=== PATIENT | female | born 1980 | race Caucasian/White ===

== ENCOUNTER 2019-08-20 09:32 | Emergency (ER) | payer OTHER, SELFPAY ==
[2019-08-20 09:41] VITALS: BP 127/66; PULSE 88; RESP 20; TEMP 37.3; O2SAT 100
--- NOTE | 2019-08-20 10:47 | ED.URI ---
HPI - URI/Sore Throat General Chief Complaint: Upper Respiratory Infection Stated Complaint: cough/fever/headache Time Seen by Provider: 08/20/19 10:48 Source: patient and family History of Present Illness HPI Narrative: Patient presents with 10-day history of cough sinus congestion and bilateral ear pressure. Patient is taking Zyrtec and Sudafed [id number] for her symptoms. Patient denies any shortness of breath no chest pain. Patient states is normally healthy individual. MD elicited complaint: cough and nasal congestion Related Data Home Medications Medication Instructions Recorded Confirmed venlafaxine 75 mg PO DAILY 08/20/19 08/20/19 Allergies Allergy/AdvReac Type Severity Reaction Status Date / Time No Known Allergies Allergy NONE Uncoded 08/20/19 10:20 Review of Systems Review of Systems: Narrative: CONSTITUTIONAL: Denies chills, or sweats. Reports fever and generalized body aches EYES: Denies visual changes, redness, or discharge. ENT: Denies otalgia. Reports nasal congestion runny nose and sore throat CARDIOVASCULAR: Denies chest pain, palpitations, or edema. RESPIRATORY: Denies dyspnea. Reports occasional cough GASTROINTESTINAL: Denies abdominal pain, nausea, vomiting, or diarrhea. GENITOURINARY: Denies dysuria or hematuria. SKIN: Denies rash or itching. MUSCULOSKELETAL: Denies back pain, joint pain, or myalgia. Reports generalized body aches NEUROLOGIC: Denies headache, numbness, or weakness. PSYCHIATRIC: Denies anxiety or depression. PMFSH Comments At time of signature, agree with nursing past medical, surgical, social and family history. There is no relevant family history pertinent to the presenting complaint Exam Narrative: Exam Narrative: GENERAL: Well-appearing, well-nourished, and in no acute distress. HEAD: Normocephalic, atraumatic. EYES: PERRLA and EOMI. ENT: Nares clear, no rhinorrhea or epistaxis. Mucous membranes moist. Mild maxillary sinus tenderness moderate amount of postnasal drainage NECK: Supple. CHEST: Clear to auscultation. No respiratory distress. HEART: Regular rate and rhythm. No murmur heard. Normal peripheral pulses. ABDOMEN: Soft, nontender, nondistended, normal active bowel sounds. EXTREMITIES: Normal range of motion. No edema. SKIN: Warm, dry, no rash. NEURO: No focal deficits. Alert and oriented x3. Alvin Coma Scale Eye Opening: Spontaneous 4 Alvin Coma Scale Motor: Obeys Commands 6 Alvin Coma Scale Verbal: Oriented 5 Bowers Coma Scale Total 15 Course Vital Signs Vital signs: Vital Signs Temperature 37.3 C 08/20/19 09:41 Pulse Rate 88 08/20/19 09:41 Respiratory Rate 08/20/19 09:41 Blood Pressure 127/66 08/20/19 09:41 Pulse Oximetry 100 08/20/19 09:41 Temperature 37.3 C 08/20/19 09:41 Pulse Rate 88 08/20/19 09:41 Respiratory Rate 08/20/19 09:41 Blood Pressure 127/66 08/20/19 09:41 Pulse Oximetry 100 08/20/19 09:41 Addressed elevated BP today. Today's blood pressure higher than recommended range. Discussed importance of follow -up with PCP and possible intermediate accountant effects/cardiovascular events related to HTN. Currently patient denies headache, dizziness, vision changes, CP or shortness of breath. MDM - URI/Sore Throat Differential Diagnosis Differential diagnosis: Likely upper respiratory infection, otitis media, sinusitis, viral infection and bronchitis Critical Care Time Critical Care Time Critical Care Time: No Discharge Plan Discharge Clinical Impression: Sinusitis, Upper respiratory infection, Bronchitis Patient Disposition: Home, Self-Care Condition: Stable Instructions: Antibiotic Form Additional Instructions: INUSITIS, Abx Tx, Drink plenty of water (with the goal to keep your urine clear to light yellow) and get plenty of rest (8-9 hours a night).You may try saline rinses (Delmont/Simply Saline/Neti Pot), Hola's Vaporub, or a humidifier/hot showers for your nose symptoms. You may
== END 2019-08-20 11:03 | disposition home or self-care (01) ==
PROVIDERS: Emergency Provider Nurse Practitioner Family
DX: J32.9 Chronic sinusitis, unspecified (principal); J06.9 Acute upper respiratory infection, unspecified; J40 Bronchitis, not specified as acute or chronic; F41.9 Anxiety disorder, unspecified
CPT/HCPCS: 99213; G0463

== ENCOUNTER 2019-09-03 08:00 | Emergency (ER) | payer OTHER, SELFPAY ==
[2019-09-03 08:08] VITALS: BP 140/74; PULSE 103; RESP 16; TEMP 37; O2SAT 100
--- NOTE | 2019-09-03 08:15 | ED.FEMALEGU ---
HPI - Female Genitourinary General Chief complaint: Urogenital-Female Stated complaint: bladder infection Time Seen by Provider: 09/03/19 08:15 Source: patient and RN notes reviewed History of Present Illness HPI Narrative: Patient is a 39-year-old female presents the urgent care with dysuria, frequency, urgency. Patient states that she was on amoxicillin on August 19 from our facility for URI/UTI and symptoms did resolve. However, patient states that symptoms returned 1 day ago and she is also having intermittent suprapubic pressure. Denies any nausea, vomiting, abdominal pain, fever. States that she did call her PCP but they are not currently seeing any patients. Patient has not taken anything for her symptoms. No other acute complaints. No acute distress noted. Patient read the plan of care. Related Data Home Medications Medication Instructions Recorded Confirmed venlafaxine 150 mg PO DAILY 09/03/19 09/03/19 Allergies Allergy/AdvReac Type Severity Reaction Status Date / Time No Known Allergies Allergy NONE Uncoded 09/03/19 08:21 Review of Systems Review of Systems: Narrative: CONSTITUTIONAL: Denies fever, chills, or sweats. EYES: Denies visual changes, redness, or discharge. ENT: Denies rhinorrhea, congestion, sore throat, or otalgia. CARDIOVASCULAR: Denies chest pain, palpitations, or edema. RESPIRATORY: Denies cough or dyspnea. GASTROINTESTINAL: Denies abdominal pain, nausea, vomiting, or diarrhea. GENITOURINARY: Reports of dysuria, frequency, urgency SKIN: Denies rash or itching. MUSCULOSKELETAL: Denies back pain, joint pain, or myalgia. NEUROLOGIC: Denies headache, numbness, or weakness. All other systems reviewed are negative, except as documented in HPI. PMFSH Comments At the time of my signature, I reviewed and agree with the nursing past medical, surgical, social, and family history. There is no relevant family history pertinent to the patient complaint. Exam Narrative: Exam Narrative: GENERAL: This is a well-nourished, well-developed patient, in no apparent distress. HEAD: normocephalic, atraumatic. EYES: PERRL. Sclera clear/white. Vision is grossly intact. EARS: External ears normal NOSE: External nose normal with no obvious nasal discharge THROAT: Mucous membranes moist NECK: Neck supple CARDIOVASCULAR: Regular rate and rhythm without murmurs, gallops, or rubs. RESPIRATORY: Clear to auscultation. Breath sounds equal bilaterally. No wheezes, rales, or rhonchi. GASTROINTESTINAL: Abdomen soft, non-tender, nondistended. SKIN: warm, intact with no suspicious lesions or rash, good texture and turgor. NEURO: awake, alert, and oriented to person, place and time. There were no obvious focal neurologic abnormalities. EXTREMITIES: No clubbing, cyanosis, or edema. BACK: Negative bilateral CVA tenderness Course Vital Signs Vital signs: Vital Signs Temperature 98.6 F 09/03/19 08:08 Pulse Rate 103 H 09/03/19 08:08 Respiratory Rate 16 09/03/19 08:08 Blood Pressure 140/74 09/03/19 08:08 Pulse Oximetry 100 09/03/19 08:08 Temperature 98.6 F 09/03/19 08:08 Pulse Rate 103 H 09/03/19 08:08 Respiratory Rate 16 09/03/19 08:08 Blood Pressure 140/74 09/03/19 08:08 Pulse Oximetry 100 09/03/19 08:08 Reviewed MDM - Female Genitourinary MDM Narrative Medical decision making narrative: Reviewed lab results with the patient. She is aware that urine analysis was negative for urinary tract infection. Advised the patient to continue avoiding sugary and caffeinated drinks. Increase water intake. If you develop any increase in symptoms, follow-up with your PCP. May need further follow-up with urologist in the future. Differential Diagnosis Differential diagnosis: Likely urinary tract infection, cervicitis, ovarian cyst, vaginitis, cystitis and dysmenorrhea Lab Data Attestation: I reviewed the patient's lab results. Labs: Urine Glucose Negative Reference Range
--- NOTE | 2019-09-03 08:28 | PC.NURSE ---
NO UC ORDERED PER GER[place]
== END 2019-09-03 08:35 | disposition home or self-care (01) ==
PROVIDERS: Emergency Provider Nurse Practitioner Family
DX: R39.15 Urgency of urination (principal); F41.9 Anxiety disorder, unspecified
CPT/HCPCS: 81003; 99212; G0463

== ENCOUNTER 2020-05-10 15:21 | Emergency (ER) | payer OTHER, SELFPAY ==
--- NOTE | 2020-05-10 15:26 | ED.GENADULT ---
HPI - General Adult General Chief complaint: Upper Respiratory Infection Stated complaint: nose headache throat Time Seen by Provider: 05/10/20 15:48 Source: patient Mode of arrival: ambulatory Limitations: no limitations History of Present Illness HPI narrative: 40-year-old female patient presents to the [facility] with complaints of cold symptoms for the past week and a half. Patient states she has had congestion, some sinus pressure, headache, denies any cough chest pain or shortness of breath. Denies any fevers, body aches or chills. Patient states she has tried [id number] Sudafed and Zyrtec and Flonase for her symptoms. Denies any abdominal pain, nausea, vomiting or diarrhea. Patient denies being Covid tested. Related Data Home Medications Medication Instructions Recorded Confirmed venlafaxine 150 mg PO DAILY 09/03/19 05/10/20 cetirizine [Zyrtec] 10 mg PO DAILY 05/10/20 05/10/20 ergocalciferol (vitamin D2) 1,250 mcg PO DAILY 05/10/20 05/10/20 fluticasone propionate [Flonase 1 spray INTRANASAL DAILY 05/10/20 05/10/20 Allergy Relief] Allergies Allergy/AdvReac Type Severity Reaction Status Date / Time No Known Allergies Allergy NONE Uncoded 09/03/19 08:21 Review of Systems Review of Systems: Narrative: CONSTITUTIONAL: Denies fever, chills, or sweats. EYES: Denies visual changes, redness, or discharge. ENT: Denies rhinorrhea, positive congestion, denies sore throat, or otalgia. CARDIOVASCULAR: Denies chest pain, palpitations, or edema. RESPIRATORY: Denies cough or dyspnea. GASTROINTESTINAL: Denies abdominal pain, nausea, vomiting, or diarrhea. GENITOURINARY: Denies dysuria or hematuria. SKIN: Denies rash or itching. MUSCULOSKELETAL: Denies back pain, joint pain, or myalgia. NEUROLOGIC: Positive headache, denies numbness, or weakness. PSYCHIATRIC: Denies anxiety or depression. [facility] Past Medical History Medical History (Updated 05/10/20 @ 15:55 by SHANANN Manning) Anxiety Depression Surgical History Surgical History (Updated 05/10/20 @ 15:27 by SHANNAN Manning) Hx of tubal ligation Social History Social History Gender identity (if verbalized by the patient): Female Comments At the time of my signature I agree with nursing past medical history, surgical, social, and family history. There is no relevant family history pertinent to the presenting complaint. Exam Narrative: Exam Narrative: GENERAL: Well-appearing, well-nourished, and in no acute distress. HEAD: Normocephalic, atraumatic. Tenderness noted to maxillary sinuses on palpation EYES: PERRLA and EOMI. ENT: Nares clear, no rhinorrhea or epistaxis. Mucous membranes moist. Bilateral TMs are clear with no erythema or foreign bodies in the canal. Posterior pharynx no erythema, tonsil management, exudates or lesions present. NECK: Supple. No lymphadenopathy CHEST: Clear to auscultation. No respiratory distress. HEART: Regular rate and rhythm. No murmur heard. Normal peripheral pulses. ABDOMEN: Soft, nontender, nondistended, normal active bowel sounds. EXTREMITIES: Normal range of motion. No edema. SKIN: Warm, dry, no rash. NEURO: No focal deficits. Alert and oriented x3. Course Vital Signs Vital signs: Vital Signs Temperature 36.9 C 05/10/20 15:27 Pulse Rate 83 05/10/20 15:27 Respiratory Rate 16 05/10/20 15:27 Blood Pressure 138/92 H 05/10/20 15:27 Pulse Oximetry 98 05/10/20 15:27 Temperature 36.9 C 05/10/20 15:27 Pulse Rate 83 05/10/20 15:27 Respiratory Rate 16 05/10/20 15:27 Blood Pressure 138/92 H 05/10/20 15:27 Pulse Oximetry 98 05/10/20 15:27 Vital signs reviewed The patient has been informed that they may have pre-hypertension or Hypertension based on a BP reading in the department. I recommend that the patient call the primary care provider listed on their discharge instructions or a physician of their choice this week to a
[2020-05-10 15:27] VITALS: BP 138/92; PULSE 83; RESP 16; TEMP 36.9; O2SAT 98
== END 2020-05-10 16:08 | disposition home or self-care (01) ==
PROVIDERS: Emergency Provider Nurse Practitioner Family; PCP Nurse Practitioner Family
DX: Z20.828 Contact with and (suspected) exposure to other viral communicable diseases (principal); J01.00 Acute maxillary sinusitis, unspecified; F41.9 Anxiety disorder, unspecified; F32.9 Major depressive disorder, single episode, unspecified
CPT/HCPCS: 99213; G0463

== ENCOUNTER 2020-08-20 08:32 | Emergency (ER) | payer OTHER, SELFPAY ==
[2020-08-20 08:38] VITALS: BP 133/69; PULSE 93; RESP 14; TEMP 36.8; O2SAT 98
--- NOTE | 2020-08-20 12:35 | ED.URI ---
HPI - URI/Sore Throat General Chief Complaint: Upper Respiratory Infection Stated Complaint: headache, stuffy fatigued Source: patient Mode of arrival: ambulatory Limitations: no limitations History of Present Illness HPI Narrative: Patient is a 40-year-old female who presents complaining of headache, congestion, runny nose, mildly sore throat and facial pain and pressure x2 to 3 weeks. She reports taking [id number] Sudafed, allergy medication daily without relief. She reports thick yellow nasal drainage over the past 2 days. She denies all other complaints at this time. She denies exposure to Covid. MD elicited complaint: rhinorrhea, nasal congestion and sinus pain Related Data Home Medications Medication Instructions Recorded Confirmed venlafaxine 150 mg PO DAILY 09/03/19 08/20/20 cetirizine [Zyrtec] 10 mg PO DAILY 08/20/20 08/20/20 Allergies Allergy/AdvReac Type Severity Reaction Status Date / Time No Known Allergies Allergy NONE Uncoded 08/20/20 08:51 Review of Systems Review of Systems: Narrative: CONSTITUTIONAL: Denies fever, chills, or sweats. EYES: Denies visual changes, redness, or discharge. ENT: Reports rhinorrhea, congestion, mild sore throat, and facial pressure CARDIOVASCULAR: Denies chest pain, palpitations, or edema. RESPIRATORY: Denies cough or dyspnea. GASTROINTESTINAL: Denies abdominal pain, nausea, vomiting, or diarrhea. GENITOURINARY: Denies dysuria or hematuria. SKIN: Denies rash or itching. MUSCULOSKELETAL: Denies back pain, joint pain, or myalgia. NEUROLOGIC: Reports headache, denies numbness, dizziness, or weakness. PSYCHIATRIC: Denies anxiety or depression. [facility] Past Medical History Medical History Anxiety Depression Surgical History Surgical History Hx of tubal ligation Social History Social History Smoking status: Never smoker Alcohol intake: never Substance use: never Living arrangements: with family Gender identity (if verbalized by the patient): Female Comments At the time of signature, I have reviewed and agree with nursing past medical, surgical, social, and family history unless otherwise noted. Please see nursing chart for further information. There is no relevant family history pertinent to the presenting complaint. Exam Narrative: Exam Narrative: GENERAL: Well-appearing, well-nourished, and in no acute distress. HEAD: Normocephalic, atraumatic. EYES: EOMI. No redness or drainage. Conjunctiva are normal. ENT: Mucous membranes pink and moist. Nares clear. No rhinorrhea. TMs normal bilaterally. Throat normal. Uvula midline. Frontal and maxillary sinus tenderness with palpation NECK: AROM. Supple. No lymphadenopathy. CHEST: No respiratory distress. HEART: Regular rate and rhythm. EXTREMITIES: Normal range of motion. SKIN: Warm, dry, no rash. NEURO: No focal deficits. Alert and oriented x3. Gait steady. PSYCH: Normal affect. No signs of depression or anxiety. Course Vital Signs Vital signs: Vital Signs Temperature 36.8 C 08/20/20 08:38 Pulse Rate 93 08/20/20 08:38 Respiratory Rate 14 08/20/20 08:38 Blood Pressure 133/69 08/20/20 08:38 Pulse Oximetry 98 08/20/20 08:38 Temperature 36.8 C 08/20/20 08:38 Pulse Rate 93 08/20/20 08:38 Respiratory Rate 14 08/20/20 08:38 Blood Pressure 133/69 08/20/20 08:38 Pulse Oximetry 98 08/20/20 08:38 Reviewed-patient is informed that they may have pre-hypertension or hypertension based on a blood pressure reading. I recommend the patient call the primary care provider listed on their discharge instructions or a physician of their choice this week to arrange follow-up for further evaluation of possible pre-hypertension or hypertension. MDM - URI/Sore Throat MDM Narrative Medical decision making narrat
== END 2020-08-20 09:15 | disposition home or self-care (01) ==
PROVIDERS: Emergency Provider Nurse Practitioner; PCP Nurse Practitioner Family
DX: J01.00 Acute maxillary sinusitis, unspecified (principal); Z20.822 Contact with and (suspected) exposure to COVID-19; F41.9 Anxiety disorder, unspecified; F32.9 Major depressive disorder, single episode, unspecified
CPT/HCPCS: 87426; 99213; C9803; G0463

== ENCOUNTER 2021-05-13 18:19 | Emergency (ER) | payer OTHER, SELFPAY ==
[2021-05-13 18:25] VITALS: BP 147/85; PULSE 102; RESP 16; TEMP 36.9; O2SAT 100
--- NOTE | 2021-05-13 18:53 | ED.URI ---
HPI - URI/Sore Throat General Chief Complaint: Upper Respiratory Infection Stated Complaint: cough headache runny nose Time Seen by Provider: 05/13/21 18:53 Source: patient, RN notes reviewed and old records reviewed Mode of arrival: ambulatory Limitations: no limitations History of Present Illness HPI Narrative: 41-year-old female who presents to [facility] with one week duration of nasal congestion, clear nasal drainage with 4 days of loose cough. Patient states that she had her COVID booster and her flu shot on Sunday. Patient states that her throat is sore and is painful to swallow. Patient reports that she has been taking Sudafed,Zyrtec and Advil. Patient states that she was with her brother and his family over the holiday weekend and she just talked with him and all of his family has COVID. Patient denies any fevers. MD elicited complaint: sore throat, rhinorrhea and nasal congestion Related Data Home Medications Medication Instructions Recorded Confirmed venlafaxine 150 mg PO DAILY 05/13/21 05/13/21 Allergies Allergy/AdvReac Type Severity Reaction Status Date / Time No Known Allergies Allergy Verified 05/13/21 18:38 Review of Systems Review of Systems: CONSTITUTIONAL: Denies fever, chills, or sweats. EYES: Denies visual changes, redness, or discharge. ENT: Positive for rhinorrhea, congestion, sore throat, no otalgia. CARDIOVASCULAR: Denies chest pain, palpitations, or edema. RESPIRATORY: Positive for productive cough, denies dyspnea. GASTROINTESTINAL: Denies abdominal pain, nausea, vomiting, or diarrhea. GENITOURINARY: Denies dysuria or hematuria. SKIN: Denies rash or itching. MUSCULOSKELETAL: Denies back pain, joint pain, or myalgia. NEUROLOGIC: Denies headache, numbness, or weakness. PSYCHIATRIC: Positive for history of anxiety or depression. All systems reviewed & are unremarkable except as noted in HPI and below PMFSH Past Medical History Medical History Anxiety Depression Surgical History Surgical History Hx of tubal ligation Family History Family History (Updated 05/15/21 @ 16:54 by Arlet Mathur NP) Other Family history non-contributory Social History Social History Smoking status: Never smoker Alcohol intake: never Substance use: never Gender identity (if verbalized by the patient): Female Comments At time of signature, agree with nursing past medical, surgical, social and family history. There is no relevant family history pertinent to the presenting complaint Exam Narrative: GENERAL: Well-appearing, well-nourished, and in no acute distress. HEAD: Normocephalic, atraumatic. EYES: PERRLA and EOMI. ENT: Nares red with clear rhinorrhea no epistaxis. Mucous membranes moist.TM's normal with good light reflex, throat red with tonsils enlarged, no lesions or exudates, some post nasal drainage noted. NECK: Supple.lymphadenopathy CHEST: Clear to auscultation. No respiratory distress.SAO2 100% on room air HEART: Regular rate and rhythm. No murmur heard. Normal peripheral pulses. ABDOMEN: Soft, nontender, nondistended, normal active bowel sounds. EXTREMITIES: Normal range of motion. No edema. SKIN: Warm, dry, no rash. NEURO: No focal deficits. Alert and oriented x3. Course Vital Signs Vital signs: Vital Signs Temperature 36.9 C 05/13/21 18:25 Pulse Rate 102 H 05/13/21 18:25 Respiratory Rate 16 05/13/21 18:25 Blood Pressure 147/85 H 05/13/21 18:25 Pulse Oximetry 100 05/13/21 18:25 Temperature 36.9 C 05/13/21 18:25 Pulse Rate 102 H 05/13/21 18:25 Respiratory Rate 16 05/13/21 18:25 Blood Pressure 147/85 H 05/13/21 18:25 Pulse Oximetry 100 05/13/21 18:25 MDM - URI/Sore Throat Differential Diagnosis Differential diagnosis: Likely upper respiratory infection, sinusitis, vi
[2021-05-16 19:11] LABS: SARS-CoV-2 RNA PCR Positive
== END 2021-05-13 19:15 | disposition home or self-care (01) ==
PROVIDERS: Emergency Provider Registered Nurse; PCP Nurse Practitioner Family
DX: U07.1 COVID-19 (principal)
CPT/HCPCS: 87426; 87880; 99213; C9803; G0463; U0003; U0005

== ENCOUNTER 2021-08-25 10:18 | Emergency (ER) | payer OTHER, SELFPAY ==
[2021-08-25 10:22] VITALS: BP 133/84; PULSE 100; RESP 20; TEMP 36.9; O2SAT 98
--- NOTE | 2021-08-25 10:22 | ED.URI ---
HPI - URI/Sore Throat General Chief Complaint: Upper Respiratory Infection Stated Complaint: headache drainage Time Seen by Provider: 08/25/21 10:22 Source: patient and RN notes reviewed History of Present Illness HPI Narrative: Patient is a 41-year-old female who presents the urgent care with complaints of sinus drainage/pressure and headache for the last 2 weeks. Patient states that she does have a history of chronic allergies and has been trying to treat the allergies with Zyrtec, Sudafed, Flonase and Vicks nasal spray. Patient states that today the headache is just much worse with the sinus pressure. Patient denies of any ill contacts. No other acute complaints. No acute distress noted. Patient aware of the plan of care. Some parts of this dictation were generated by voice recognition software and may contain typographical and/or grammatical inaccuracies. Related Data Home Medications Medication Instructions Recorded Confirmed venlafaxine 150 mg PO DAILY 05/13/21 08/25/21 Allergies Allergy/AdvReac Type Severity Reaction Status Date / Time No Known Allergies Allergy Verified 08/25/21 10:22 Review of Systems Review of Systems: CONSTITUTIONAL: Denies fever, chills, or sweats. EYES: Denies visual changes, redness, or discharge. ENT: Reports of sinus drainage, postnasal drainage, intermittent congestion, rhinorrhea CARDIOVASCULAR: Denies chest pain, palpitations, or edema. RESPIRATORY: Denies cough or dyspnea. GASTROINTESTINAL: Denies abdominal pain, nausea, vomiting, or diarrhea. GENITOURINARY: Denies dysuria or hematuria. SKIN: Denies rash or itching. MUSCULOSKELETAL: Denies back pain, joint pain, or myalgia. NEUROLOGIC: Reports of headaches All other systems reviewed are negative, except as documented in HPI. [facility] Past Medical History Medical History Anxiety Depression Surgical History Surgical History Hx of tubal ligation Family History Family History (Updated 05/15/21 @ 16:54 by Arlet Mathur NP) Other Family history non-contributory Social History Social History Smoking status: Never smoker Alcohol intake: never Substance use: never Gender identity (if verbalized by the patient): Female Comments At the time of my signature, I reviewed and agree with the nursing past medical, surgical, social, and family history. There is no relevant family history pertinent to the patient complaint. Exam Narrative: GENERAL: This is a well-nourished, well-developed patient, in no apparent distress. HEAD: normocephalic, atraumatic. Frontal sinus tenderness EYES: PERRL. Sclera clear/white. Vision is grossly intact. EARS: External ears normal, auditory canals clear and without drainage, TMs normal without perforation. Hearing grossly intact. NOSE: External nose normal with no obvious nasal discharge, bilateral erythemic nares with clear to yellow rhinorrhea. THROAT: Mucous membranes moist, posterior pharynx clear. Moderate postnasal drainage NECK: Neck supple, non-tender without lymphadenopathy, masses or thyromegaly. CARDIOVASCULAR: Regular rate and rhythm without murmurs, gallops, or rubs. RESPIRATORY: Clear to auscultation. Breath sounds equal bilaterally. No wheezes, rales, or rhonchi. SKIN: warm, intact with no suspicious lesions or rash, good texture and turgor. NEURO: awake, alert, and oriented to person, place and time. There were no obvious focal neurologic abnormalities. EXTREMITIES: No clubbing, cyanosis, or edema. Course Course Level of Care: Express Care Visit Vital Signs Vital signs: Vital Signs Temperature 98.4 F 08/25/21 10:22 Pulse Rate 100 08/25/21 10:22 Respiratory Rate 20 08/25/21 10:22 Blood Pressure 133/84 08/25/21 10:22 Pulse Oximetry 98 08/25/21 10:22 Temperature 98.4 F
== END 2021-08-25 10:43 | disposition home or self-care (01) ==
PROVIDERS: Emergency Provider Nurse Practitioner Family; PCP Nurse Practitioner Family
DX: J32.9 Chronic sinusitis, unspecified (principal); F41.9 Anxiety disorder, unspecified; F32.A Depression, unspecified
CPT/HCPCS: 99213; G0463

== ENCOUNTER 2022-04-28 08:54 | Emergency (ER) | payer OTHER, SELFPAY ==
[2022-04-28 08:59] VITALS: BP 134/73; PULSE 112; RESP 16; TEMP 37.4; O2SAT 100
--- NOTE | 2022-04-28 10:13 | ED.URI ---
HPI - URI/Sore Throat General Chief Complaint: Upper Respiratory Infection Stated Complaint: sore throat aches cough headache Time Seen by Provider: 04/28/22 10:06 Source: patient Mode of arrival: ambulatory Limitations: no limitations History of Present Illness HPI Narrative: Patient presents today complaining body aches, headache, fever, occasional sore throat, and congestion. Symptoms began yesterday. She currently rates her pain 12/18 and has been taking Sudafed and Advil with some relief. Was exposed to COVID-19 by her boss at work. She has been vaccinated against COVID-19. Related Data Home Medications Medication Instructions Recorded Confirmed venlafaxine 150 mg 150 mg PO DAILY 05/13/21 04/28/22 capsule,extended release 24 hr Allergies Allergy/AdvReac Type Severity Reaction Status Date / Time No Known Allergies Allergy Verified 04/28/22 09:50 Review of Systems Review of Systems: CONSTITUTIONAL: Denies chills, or sweats.+ body aches, fever EYES: Denies visual changes, redness, or discharge. ENT: Denies rhinorrhea, or otalgia.+ congestion, sore throat CARDIOVASCULAR: Denies chest pain, palpitations, or edema. RESPIRATORY: Denies cough or dyspnea. GASTROINTESTINAL: Denies abdominal pain, nausea, vomiting, or diarrhea. GENITOURINARY: Denies dysuria or hematuria. SKIN: Denies rash, itching, or wounds. MUSCULOSKELETAL: Denies back pain, joint pain, or myalgia. NEUROLOGIC: Denies numbness, tingling, or weakness.+ headache PSYCH: Denies depression or anxiety. [facility] Past Medical History Medical History Anxiety Depression Surgical History Surgical History Hx of tubal ligation Family History Family History Other Family history non-contributory Social History Social History Smoking status: Never smoker Alcohol intake: never Substance use: never Gender identity (if verbalized by the patient): Female Comments At time of signature, I have reviewed and agree with nursing past medical, surgical, social and family history unless otherwise noted. Please see nursing chart for further information. There is no relevant family history pertinent to the presenting complaint Exam Narrative: GENERAL: Mildly ill-appearing, well-nourished, and in no acute distress. HEAD: Normocephalic, atraumatic. EYES: EOMI. No redness or drainage. Conjunctivae normal. ENT: Mucous membranes pink and moist. Nares congested. No rhinorrhea. TMs normal bilaterally. Throat normal. Uvula midline. NECK: Normal AROM. Supple. No lymphadenopathy. CHEST: No respiratory distress. Clear to auscultation. HEART: Regular rhythm. + tachycardia. No murmur appreciated. Normal peripheral pulses. EXTREMITIES: Normal range of motion. No edema. SKIN: Warm, dry, no rash. Capillary refill normal. Normal skin turgor. NEURO: No focal deficits. Alert and oriented x3. Gait steady. PSYCH: Normal affect. No signs of depression or anxiety. Course Course Level of Care: Express Care Visit Vital Signs Vital signs: Vital Signs Temperature 99.3 F 04/28/22 08:59 Pulse Rate 112 H 04/28/22 08:59 Respiratory Rate 16 04/28/22 08:59 Blood Pressure 134/73 04/28/22 08:59 Pulse Oximetry 100 04/28/22 08:59 Oxygen Delivery Room Air 04/28/22 08:59 Temperature 99.3 F 04/28/22 08:59 Pulse Rate 112 H 04/28/22 08:59 Respiratory Rate 16 04/28/22 08:59 Blood Pressure 134/73 04/28/22 08:59 Pulse Oximetry 100 04/28/22 08:59 Oxygen Delivery Room Air 04/28/22 08:59 Reviewed. Pt has been instructed to follow up with her PCP regarding her elevated blood pressure today. MDM - URI/Sore Throat Differential Diagnosis Differential diagnosis: Likely upper respiratory infecti
== END 2022-04-28 10:20 | disposition home or self-care (01) ==
PROVIDERS: Emergency Provider Nurse Practitioner; PCP Nurse Practitioner Family
DX: U07.1 COVID-19 (principal); F41.8 Other specified anxiety disorders
CPT/HCPCS: 87426; 87804; 99213; C9803; G0463

== ENCOUNTER 2022-05-27 17:25 | Emergency (ER) | payer OTHER, SELFPAY ==
--- NOTE | ~2022-05-27 | XR_ITS ---
EXAMINATION: XR ankle LT min 3V, XR foot LT min 3V DATE: 05/27/2022 17:56 INDICATION: Left foot and ankle pain post fall down stairs TECHNIQUE: 1. Anteroposterior, mortise, additional oblique and lateral view of the left ankle were obtained. 2. Dorsoplantar, two oblique and lateral views of the left foot were obtained. COMPARISON: None. FINDINGS: Alignment of the foot and ankle is normal. No fracture or osteochondral lesion. Joint spaces are well maintained. No ankle joint effusion. Mild soft tissue swelling along the dorsolateral aspect of the midfoot. IMPRESSION: 1. No osseous abnormality at the left foot or ankle. Reviewed, dictated and finalized at location A. D MAP TECHNICIAN IMPRESSION: 1. No osseous abnormality at the left foot or ankle.
[2022-05-27 17:30] VITALS: BP 151/92; PULSE 120; RESP 18; TEMP 36.6; O2SAT 100
--- NOTE | 2022-05-27 18:26 | ED.GENADULT ---
HPI - General Adult General Chief complaint: Extremity Injury, Lower Stated complaint: left foot injury Source: patient Mode of arrival: ambulatory Limitations: no limitations History of Present Illness HPI narrative: Patient presents for evaluation of pain in the left foot and ankle. She indicates she was moving furniture today when she fell down a few steps. She caught herself using her arms. She did not hit her head nor did she have a LOC. She states pain in left foot and ankle is 8/10 in severity. No descriptive quality of the pain. Pain is worse with movement. She is unable to bear weight secondary to pain. She took some Aleve without considerable improvement in her symptoms or after. No paresthesias. No additional complaints or concerns. Related Data Home Medications Medication Instructions Recorded Confirmed venlafaxine 150 mg 150 mg PO DAILY 05/13/21 05/27/22 capsule,extended release 24 hr Allergies Allergy/AdvReac Type Severity Reaction Status Date / Time No Known Allergies Allergy Verified 05/27/22 17:35 Review of Systems Review of Systems: CONSTITUTIONAL: Denies fever, chills, or sweats. EYES: Denies visual changes, redness, or discharge. ENT: Denies rhinorrhea, congestion, sore throat, or otalgia. CARDIOVASCULAR: Denies chest pain, palpitations, or edema. RESPIRATORY: Denies cough or dyspnea. GASTROINTESTINAL: Denies abdominal pain, nausea, vomiting, or diarrhea. GENITOURINARY: Denies dysuria or hematuria. SKIN: Denies rash or itching. MUSCULOSKELETAL: Reports left foot and ankle pain NEUROLOGIC: Denies headache, numbness, dizziness, or weakness. PSYCHIATRIC: Denies anxiety or depression. [facility] Past Medical History Medical History Anxiety Depression Surgical History Surgical History Hx of tubal ligation Family History Family History Other Family history non-contributory Social History Social History Smoking status: Never smoker Alcohol intake: never Substance use: never Living arrangements: with family Gender identity (if verbalized by the patient): Female Spiritual care concerns: No Exam Narrative: GENERAL: Well-appearing, well-nourished, and in no acute distress. HEAD: Normocephalic, atraumatic. EYES: PERRLA and EOMI. ENT: Nares clear, no rhinorrhea or epistaxis. Mucous membranes moist. Oropharynx without tonsillar hypertrophy exudate or other lesions. Bilateral TMs pearly carr nonbulging NECK: Supple. No adenopathy or masses. No carotid bruits or JVD CHEST: Clear to auscultation. No respiratory distress. No wheezes rales or rhonchi HEART: Regular rate and rhythm. No murmur heard. Normal peripheral pulses. ABDOMEN: Soft, nontender, nondistended, normal active bowel sounds. EXTREMITIES: There is tenderness over the dorsal and lateral aspects of the left foot. There is also tenderness to the arch of the left foot. No tenderness over left medial malleolus or lateral malleolus. There is trace swelling noted to left ankle and foot. Pt's foot is in a slightly plantarflexed. She is able to wiggle all digits of left foot. Decreased dorsiflexion of left foot 2/2 pain. SKIN: Warm, dry, no rash. NEURO: No focal deficits. Alert and oriented x3. PSYCH: Normal mood and affect. Course Course Emergency Course: This is a 42-year-old female presenting for evaluation of pain in left foot and ankle following a fall. X-rays were negative for fracture. She is quite tender on exam and unable to bear weight. We do not have walking boot available. Advised we splint in the event occult fracture present. Pt agreeable and tolerated well. Post splint neurovascular check intact. Advised close follow-up with Orthopedics. Should he has cru
[2022-05-27] MEDS: KETOROLAC (*BKC) 60 MG/2 ML VIAL IM (18:51)
== END 2022-05-27 19:21 | disposition home or self-care (01) ==
PROVIDERS: Emergency Provider Nurse Practitioner; PCP Nurse Practitioner Family
DX: S96.912A Strain of unspecified muscle and tendon at ankle and foot level, left foot, initial encounter (principal); W10.9XXA Fall (on) (from) unspecified stairs and steps, initial encounter; F41.9 Anxiety disorder, unspecified; F32.A Depression, unspecified
CPT/HCPCS: 29515; 73610; 73630; 96372; 99213; G0463; J1885

== ENCOUNTER 2022-08-16 09:04 | Emergency (ER) | payer OTHER, SELFPAY ==
[2022-08-16 09:14] VITALS: BP 134/69; PULSE 105; RESP 18; TEMP 36.6; O2SAT 98
--- NOTE | 2022-08-16 09:27 | ED.FALL ---
HPI - Fall General Chief Complaint: Fall Stated Complaint: Fall Injury/Nose Injury Time Seen by Provider: 08/16/22 09:07 History of Present Illness HPI Narrative: Pt is a 42 y/o female, presents to with multiple complaints. She notes two weeks ago she began having nasal congestion and clear nasal discharge. One week ago she began with a cough and her throat felt scratchy. Nasal congestion has persisted. SHe began running fevers 3 days ago. She notes her nasal discharge is now thick and purulent. She denies associated CP, SOB, abdominal pain, NVDC or urinary symptoms. This morning she planned on visiting the however around 0200, she tripped and fell over her dog, hitting her nose, right thigh and right robin. She does not feel she has fractured anything but states the wound on her nose may need suturing prompting her visit. She is taking APAP and Motrin for fevers. She is uncertain when her last tetanus was. She is not . Related Data Home Medications Medication Instructions Recorded Confirmed venlafaxine 150 mg 150 mg PO DAILY 05/13/21 05/27/22 capsule,extended release 24 hr Allergies Allergy/AdvReac Type Severity Reaction Status Date / Time No Known Allergies Allergy Verified 05/27/22 17:35 Review of Systems Review of Systems: negative except as stated in HPI ENT: Comments: refer to HPI Musculoskeletal: Comments: refer to HPI Integumentary/Breasts: Comments: refer to HPI [facility] Past Medical History Medical History Anxiety Depression Surgical History Surgical History Hx of tubal ligation Family History Family History Other Family history non-contributory Social History Social History Smoking status: Never smoker Alcohol intake: never Substance use: never Living arrangements: with family Gender identity (if verbalized by the patient): Female Spiritual care concerns: No Exam Const: General: healthy appearing, no acute distress and alert HENMT: Head: normal to inspection Ears: external ears normal and TM abnormal (serous effusion noted. No erythema appreciated. TMs are translucent) dull Face/Nose/Sinus: Normal nares present (no septal hematoma, mild nasal mucosa erythema nd swelling) and Nasal discharge present (green post nasal discharge noted) Nose image: 1. superficial laceration, well approximated without repair, cleaned, wound margin does not manipulate Other: no epistaxis Eyes: Conjunctivae: conjunctivae normal Pupils: Equal, round and reactive pupils present EOM: EOMs intact bilaterally Neck: Neck: normal visual inspection and no lymphadenopathy Other: no C spine point tenderness, no step offs Chest: Other: no TTP Resp: Effort & Inspection: normal respiratory effort Auscultation: clear to auscultation bilaterally Cardio: Rate: regular rate GI: Other: no TTP Back/Spine/Pelvis: Other: no T or L spine point tenderness no step offs Skin: General skin exam: normal color Other: Pt has an area of ecchymosis over the right anterior thigh and right lower robin, anteriorly, lower 1/3. No underlying bony TTP. NO crepitus Neuro: General: patient oriented x3 and moves all extremities Course Course Emergency Course: wound is cleaned and does not require repair. Will update tetanus and discharge home on oral abx for suspected ABRS Level of Care: Express Care Visit Vital Signs Vital signs: Vital Signs Temperature 36.6 C 08/16/22 09:14 Pulse Rate 105 H 08/16/22 09:14 Respiratory Rate 18 08/16/22 09:14 Blood Pressure 134/69 08/16/22 09:14 Pulse Oximetry 98 08/16/22 09:14 Oxygen Delivery Room Air 08/16/22 09:14 Temperature 36.6 C 08/16/22 09:14 Pulse Rate 105 H 08/16
[2022-08-16] MEDS: TETANUS,DIPHTHERIA,AC PERTUSSIS ADULT (0.5 ML) BOOSTRIX IM (09:38)
== END 2022-08-16 09:53 | disposition home or self-care (01) ==
PROVIDERS: Emergency Provider Nurse Practitioner Family; PCP Nurse Practitioner Family
DX: J01.00 Acute maxillary sinusitis, unspecified (principal); S01.21XA Laceration without foreign body of nose, initial encounter; Z23 Encounter for immunization; W01.0XXA Fall on same level from slipping, tripping and stumbling without subsequent striking against object, initial encounter
CPT/HCPCS: 90471; 90715; 99213; G0463

== ENCOUNTER 2023-11-23 09:41 | Emergency (ER) | payer OTHER, SELFPAY ==
[2023-11-23 09:45] VITALS: BP 136/81; PULSE 71; RESP 16; TEMP 36.5; O2SAT 100
--- NOTE | 2023-11-23 09:53 | ED.URI ---
HPI - URI/Sore Throat General Chief Complaint: Upper Respiratory Infection Stated Complaint: nose/cough/drainage/headache Time Seen by Provider: 11/23/23 09:54 Source: patient, RN notes reviewed and old records reviewed Mode of arrival: ambulatory Limitations: no limitations History of Present Illness HPI Narrative: 43-year-old female to Express Care complaint runny nose for 1 month, as well as cough, headache, sinus congestion for 1 week. Patient has attempted to treat at home with Zyrtec, Flonase, Sudafed, Tylenol. Patient denies allergies, fever, sore throat, ear pain. Patient able to tolerate fluids by mouth. Respirations even and nonlabored. Patient able to speak in complete sentences without difficulty. Patient in no acute distress. Related Data Home Medications Medication Instructions Recorded Confirmed liraglutide 0.6 mg/0.1 mL (18 mg/3 0.6 mg subcut DAILY 11/23/23 11/23/23 mL) subcutaneous pen injector (Bizerra.ru 3-Derian) pen needle, diabetic 32 gauge x 11/23/23 11/23/23 5/32 (TRUEplus Pen Needle) venlafaxine 150 mg 150 mg PO DAILY 11/23/23 11/23/23 capsule,extended release 24 hr Allergies Allergy/AdvReac Type Severity Reaction Status Date / Time No Known Allergies Allergy Verified 11/23/23 09:54 Review of Systems Review of Systems: All systems reviewed & are unremarkable except as noted in HPI and below Constitutional: Constitutional: Reports as per HPI and Reports headache(s) Eyes: Eyes: Reports no additional eye complaints ENT: Reports as per HPI, Reports nasal congestion, Reports nasal discharge and Reports sinus pressure Cardiovascular: Cardiovascular: Reports no additional cardiovascular complaints, Denies chest pain and Denies dyspnea Respiratory: Respiratory: Reports no additional respiratory complaints, Reports cough and Denies dyspnea Musculoskeletal: Musculoskeletal: Reports no additional musculoskeletal complaints Neurologic: Reports system reviewed and no additional complaints, except as documented Psychiatric: Psychiatric: Reports no additional psychiatric complaints PMFSH Past Medical History Medical History Anxiety Depression Surgical History Surgical History Hx of tubal ligation Family History Family History Other Family history non-contributory Social History Social History Smoking status: Never smoker Alcohol intake: never Substance use: never Living arrangements: with family Gender identity (if verbalized by the patient): Female Spiritual care concerns: No Comments At the time of my signature, I reviewed and agree with the nursing past medical, surgical, social, and family history. There is no relevant family history pertinent to the patient complaint. Exam Const: General: cooperative, no acute distress, alert, ill appearing acutely, tired appearing, uncomfortable and well nourished Nutritional Appearance: well nourished Orientation/consciousness: patient oriented x3 Limitations: no limitations HENMT: Head: normal to inspection Ears: external ears normal and TM abnormal dull bilateral and with fluid behind the TM bilateral ( clear) Face/Nose/Sinus: Normal external nose present, Abnormal mucous membranes and turbinates present boggy and erythematous, normal facial exam, No erythema and No edema Face and sinus: normal facial exam, no erythema and no edema Mouth: Yes Normal oral and palatal mucosa present Throat: posterior oropharynx abnormal erythema and postnasal drainage Eyes: General: appearance normal, both eyes and all related structures Neck: Neck: normal visual inspection, full ROM and no meningeal signs Lymphatic: no lymphadenopathy noted and no lymphedema noted Chest: Chest palpation &
== END 2023-11-23 10:25 | disposition home or self-care (01) ==
PROVIDERS: Emergency Provider Nurse Practitioner Family; PCP Nurse Practitioner Family
DX: R05.9 Cough, unspecified (principal); F41.9 Anxiety disorder, unspecified; F32.A Depression, unspecified
CPT/HCPCS: 99213; G0463

== ENCOUNTER 2024-06-01 11:43 | Emergency (ER) | payer SELFPAY ==
--- OUTSIDE RECORDS SUMMARY | 2024-06-08 15:49 | XMS_ITS | Encounter Summary ---
Author Organization [facility] Healthcare Address [address] [place] [address] Care Team Providers Care Operations Executive Name Role Phone Bernardo Aragon MD Primary Care Provider + Encounter Details Date Type Department Care Team (Late st Contact Info) Description 09/10/2014 4:06 PM CDT - 09/10/2014 11:59 PM CDT Hospital Encounter [facility] Del[facility], Yeimy Buchanan MD [address] [place] [address] Urinary frequency Social History Tobacco Use Types Packs/Day Years Used Date Smoking Tobacco: Never Alcohol Use Standard Drinks/Week Comments Yes 0 (1 standard drink = 0.6 oz pur e alcohol) Comments Unknown Sex and Gender Information Value Date Recorded Sex Assigned at Not on file 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 0 02/06/2012 01/18/2018 amitriptyline (ELAVIL) 10 mg tablet take 2 tablet by oral route every day 0 0 11/17/2013 01/12/2017 cetirizine (ZyrTEC) 10 mg capsule 10 mg. 0 10/17/2011 01/18/2018 documented as of this encounter Plan of Treatment Not on file documented as of this encounter Procedures Procedure Name Priority Date/Time Associated Diagnosis Comments URINE MICROBIOLOGY Routine 09/10/2014 12 :00 AM CDT documented in this encounter Results * Urine Microbiology (09/10/2014 12:00 AM CDT) 09/10/2014 Narrative HISTORICAL RESULTS - 09/12/2014 4:52 PM CDT [facility] ?Patient Name: ?ANKIT SOTO ?Med. Rec#: ?? [id number] ?Pt. Acct.#: ??[id number] ?Birthdate: ?? 1980 ?Age / Sex: ?? 34Y / F ?Location: ?[facility] ([facility] ?Admit Date: ??09/10/2014 ?Discharge Date: ? 09/10/2014 ?Doctor: ?Patient Type: ?[facility] Ref Lab - Insuran Culture, Urine ? Collected: 09/10/2014 16:06 Specimen: Urine ?? Specimen Source: Clean Voided Specimen Status: Final ??Last Update: 09/12/2014 11:20 Organism ?? Less than 10,000 cfu/ml of ?? Gram negative bacilli Organism ?? Less than 10,000 cfu/ml of ?? Gram positive organisms Comment ? This culture result is consistent with contamination ?? by normal genital-perineal soo. us Historical Provider LAB MICROBIOLOGY - GENERA L ORDERABLES Final Result HISTORICAL RESULTS documented in this encounter Visit Diagnoses Diagnosis Urinary frequency documented in this encounter Care Teams Operations Executive Relationship Specialty Start Date End Date Bernardo Aragon MD [address] [place] [address] [place] [address] PCP - General 07/22/10 03/19/23 documented as of this encounter
--- OUTSIDE RECORDS SUMMARY | 2024-06-08 15:49 | XMS_ITS | Encounter Summary ---
Author Organization [facility] Healthcare Address [address] [place] [address] Care Team Providers Care Windows Mobile Developer Name Role Phone Laila Goss OUTSIDE SALES CONSULTANT Primary Care Provider [phone] Reason for Referral * Consultation (Routine) - Closed Specialty Diagnoses / Procedures Referred By Cheyanne pacheco Referred To Contact Diabetes and Nutrition Services Diagnoses Obesity, unspecified classification, unspecified obesity type, unspecified whether serious comorbidity present Laila Goss NP [address] [place] [address] Phone: tel: fax: Laila Goss NP [address] [place] [address] Phone: tel: fax: Referral ID Status Reason Start Date Expiration Date V isits Requested Visits Authorized [id number] Closed Specialty Services Required 02/24/2023 03/25/2024 10 10 Question Answer [id number] Initial / Annual Follow-up MNT Please select the performing region: [facility] [[id number]] To provider: LAILA GOSS [[id number]] # of visits: 10 Reason for Visit * Consultation (Routine) - Closed Specialty Diagnoses / Procedures Referred By Cheyanne pacheco Referred To Contact Diabetes and Nutrition Services Diagnoses Obesity, unspecified classification, unspecified obesity type, unspecified whether serious comorbidity present Laila Goss NP [address] [place] [address] Phone: tel: fax: Laila Goss NP [address] [place] [address] Phone: tel: fax: Referral ID Status Reason Start Date Expiration Date V isits Requested Visits Authorized [id number] Closed Specialty Services Required 02/24/2023 03/25/2024 10 10 Encounter Details Date Type Department Care Team (Latest Contact Info) Description 03/30/2023 7:10 AM CDT - 03/30/2023 11:59 PM CDT Hospital Encounter [facility] Nutrition and Diabetic Education [address] [facility] [address] [place] [address] [facility] [place] [address] Obesity, unspecified classification, unspecified obesity type, unspecified whether serious comorbidity present Discharge Disposition: Discharge to home or self care Social History Tobacco Use Types Packs/Day Years Used Date Smoking Tobacco: Never Smokeless Tobacco: Never Alcohol Use Standard Drinks/Week Comments Yes 0 (1 standard drink = 0.6 oz pur e alcohol) Comments No Sex and Gender Information Value Date Recorded Sex Assigned at Not on file Legal Sex Female 1:15 PM SCOWMAN Gender Identity Not on file Sexual Orientation Not on file 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 venlafaxine 225 mg tablet extended release 24hr 24 hr tablet Take 225 mg by mouth daily. documented as of this encounter Discharge Disposition Disposition Code Departure Means Destination Discharge to home or self care documented in this encounter Progress Notes * Vee Kirkpatrick RD - 03/30/2023 7:30 AM CDT Outpatient Nutrition Counseling Assessment Patient Name: Debo Quevedo : 1980 Sex: female Encounter Date: 03/30/2023 Time Calculation (min): 90 min Visit #: 1 Pt referred by Laila Goss NP to nutrition counseling for Obesity . She has a past medical history of Vaginismus (2013). Assessment: Pt is alone for nutritional counseling for obesity. Pt is 5'7 and weigh 213.9 lbs. Pt started taking Phentermine a year ago and has only lost 10 lbs. She walks a mile a day but has been walking the same mile for years. Pt will work on adding stairs or hills to her walks or start swimming laps. Sheadmits to drinking Hit n run Pepsi every weekend. Correct portion sizes were shown. Food labels read. Hands on carb counting demonstrated for a meal by this patient. Diet Recall: Breakfast: oatmeal, milk. Water. Lunch: Rice, chicken, broccoli and unsweet tea, water Dinner: Premier protein shake, water Snacks: apple, celery & peanut butter. Beverages: water, unsweet tea Personal Goals: Lose weight 1-6 lbs/month Support System: family Barriers to change: Do additional exercise. Switch regular soda drinking to diet soda. Exercise: walk a mile at night with her dog. Anthropometrics: Ht 170.2 cm (5' 7 ) BMI 29.91 kg/m?? IBW/kg (Calculated) : 61.2 kg. Today's weight= 213.9 lbs. Wt Readings from Last 3 Encounters: 01/18/18 86.6 kg (191 lb) 01/12/17 78 kg (172 lb) 01/13/16 83.9 kg (185 lb) No results found for: CALCBMI Relevant Medications and Lab Review: HOME MEDICATIONS : fexofenadine (BENITO) 180 mg tablet venlafaxine 225 mg tablet extended release 24hr 24 hr tablet Food/Medication interactions: na MVI use: na No results found for: HGBA1C No results found for: CHOL , HDL , LDL , TRIG , CREATININE , BUNSER , SODIUM , POTASSIUM , PHOS Nutritional Needs and Diagnosis: Careplan 1 Nutrition Diagnosis 1: Food and nutrition-related knowledge deficit Related to: Lack of activity, Food choices, Lack of education Evidenced by: Patient interview Nutritional Needs: Total Kcal/kg Estimated Needs : 1455.36 Kcal/k Total Protein Estimated Needs (gm): 97.02 Protein Needs Based on g/k.0 Total Daily Carbohydrates Recommended (gm): 150 Total Fat Estimated Needs (gm): 32.34 Fat Needs Based on % of Calories: 20 Total Fluid Estimated Needs: 1455.36 Fluid Needs Based on : 1 ml/kcal Intervention: Educated and counseled pt on basics of health and nutrition, how to read nutrition facts labels, mindfulness, meal planning. Pt provided with sample meal plan, recipes, grocery shopping list, and relevant handouts. Discussed importance of making heart healthy diet choices. Specifically, lowering total fat and saturated fat consumption as well as decreasing sodium in the diet to <2000mg per day. Extensively discussed mindful eating, discussing: Encouraged to slow down meal times by using all of your senses (sight, smell, taste, etc.) avoiding distractions (ex. TV) drinking water between bites Identify hunger cues using smaller plates to decrease portions Placing foods/beverages in pantry instead of counter & keep healthier alternatives available toavoid impulse choices Preplan meals away from home by looking at nutrition information online, ordering kids or lunch meals, and asking electrical electronics engineer for to-go box at beginning of meal. Primary teaching and session discussion focused on basics of health and nutrition, what foods contain carbohydrates, how to read nutrition facts labels, carbohydrate counting, and meal planning. Pt provided with sample meal plan, recipes, grocery shopping list, carbohydrate counting booklet and relevant handouts. Recommended Debo Quevedo consume 35-40 grams carbohydrate choices per meal and 5 grams carb choice plus lean protein per snack. Provided meal plan with example carbohydrate choice serving sizes, protein recommendations 6-11 oz/day, non starchy vegetable recommendations 3-5 servings/day & recommendations for fat intakes 3 servings/day. Discussed choosing lean protein and opting for unsaturated fats over saturated fats. Encouraged Debo Quevedo to incorporate physical activity as permitted by MD with overall goal of 150 minutes per week. Intervention: Lose more weight 1-6 lbs/month. Monitoring/Evaluation: Weekly weigh ins Evaluation of Learning: Pt Debo Quevedo needs further instruction and needs review/assistance. Pt is in Preparation stage of change. Expect adherence to recommendations to be good. Pt to follow up in May 2023 for support/reinforcement. Communication sent to referring provider with education provided and desired outcomes Vee Kirkpatrick RDN, LDN documented in this encounter Plan of Treatment Scheduled Referrals Name Type Priority Associated Diagnoses Order Schedule Ambulatory referral to Nutrition Services Outpatient Referral Routine Obesity, Unspecified Classification, Unspecified Obesity Type, Unspecified Whether Serious Comorbidity Present Once for 1 Occurrences starting 03/30/2023 until 03/30/2023 documented as of this encounter Visit Diagnoses Diagnosis Obesity, unspecified classification, unspecified obesity type, unspecified whether serious comorbidity present documented in this encounter Care Teams Windows Mobile Developer Relationship Specialty Start Date End Date Laila Goss NP [address] [place] [address] PCP - General Nurse Practitioner 03/20/23 documented as of this encounter
--- OUTSIDE RECORDS SUMMARY | 2024-06-08 15:49 | XMS_ITS | Encounter Summary ---
Author Organization [facility] Address [address] [place] [id number] Care Team Providers Care Coastal Tug Mate Name Role Phone Unavailable Primary Care Provider Unavailabl e Encounter Details Date Type Department Care Team (Late st Contact Info) Description 05/23/2020 Lab Requisition [facility] Health Community Testing [facility] [address] [place] [address] [place] [address] [address] [place] [address] Social History Tobacco Use Types Packs/Day Years Used Date Smoking Tobacco: Never Assessed Comments Unknown Sex and Gender Information Value Date Recorded Sex Assigned at Not on file Legal Sex Female 10:37 PM CDT Gender Identity Not on file Sexual Orientation Not on file documented as of this encounter Plan of Treatment Not on file documented as of this encounter Procedures Procedure Name Priority Date/Time Associated Diagnosis Comments SARS-COV-2 PCR [facility] ONLY Routine 05/23/2020 9:34 AM TIME STUDY TECHNOLOGIST documented in this encounter Visit Diagnoses Not on filedocumented in this encounter
--- OUTSIDE RECORDS SUMMARY | 2024-06-08 15:49 | XMS_ITS | Encounter Summary ---
Author Organization [facility] Address [address] [place] [address] Care Team Providers Care Rackman Name Role Phone Bernardo Aragon MD Primary Care Provider + Encounter Details Date Type Department Care Team (Late st Contact Info) Description 05/08/2018 Telephone [facility] [address] [place] [address] Yeimy Delgado MD [address] [place] [address] Social History Tobacco Use Types Packs/Day Years Used Date Smoking Tobacco: Never Smokeless Tobacco: Never Alcohol Use Standard Drinks/Week Comments Yes 0 (1 standard drink = 0.6 oz pur e alcohol) Comments No Sex and Gender Information Value Date Recorded Sex Assigned at Not on file Legal Sex Female 1:15 PM CARBON SEQUESTRATION PLANT MANAGER Gender Identity Not on file Sexual Orientation Not on file 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
--- OUTSIDE RECORDS SUMMARY | 2024-06-08 15:49 | XMS_ITS | Encounter Summary ---
Author Organization [facility] Care Team Providers Care Director Counseling Bureau Name Role Phone Laila Danielle APRN, CNP Primary Care Provider [phone] Raghav Blanco DPM Unavailable Unavailable Encounter Details Date Type Department Care Team (Latest Contact Info) Description 06/14/2022 Travel Social History Tobacco Use Types Packs/Day Years Used Date Smoking Tobacco: Never Smokeless Tobacco: Never Alcohol Use Standard Drinks/Week Comments Yes 0 (1 standard drink = 0.6 oz pur e alcohol) occasional Comments Unknown Sex and Gender Information Value Date Recorded Sex Assigned at Not on file Legal Sex Female 10:37 PM CDT Gender Identity Not on file Sexual Orientation Not on file COVID-19 Exposure Response Date Recorded In the last 10 days, have yo u been in contact with someone who was confirmed or suspected to have Coronavirus/COVID-19? No / Unsure 06/14/2022 9:19 AM FINISH PHOTOGRAPHER documented as of this encounter Plan of Treatment Not on file documented as of this encounter Visit Diagnoses Not on filedocumented in this encounter Care Teams Director Counseling Bureau Relationship Specialty Start Date End Date Laila Danielle APRN, CNP [address] [place] [address] PCP - General Family Medicine 05/30/22 Raghav Blanco DPM Podiatry 05/31/22 documented as of this encounter
--- OUTSIDE RECORDS SUMMARY | 2024-06-08 15:49 | XMS_ITS | Encounter Summary ---
Author Organization [facility] Address [address] [place] [address] Phone Care Team Providers Care Chief Program Officer Name Role Phone Danielle, Laila DALLAS STEELE Primary Care Provider [phone] Raghav Blanco DPM Unavailable Unavailable Encounter Details Date Type Department Care Team (Latest Contact Info) Description 06/09/2022 11:00 AM DIESEL ENGINE ENGINEER - 06/09/2022 11:59 PM DIESEL ENGINE ENGINEER Hospital Encounter [facility] Diagnostic Radiology [address] [place] [id number] Raghav Blanco, DPM Discharge Disposition: Discharged to home or Selfcare Social History Tobacco Use Types Packs/Day Years [...] suspected to have Coronavirus/COVID-19? No / Unsure 06/09/2022 10:55 AM DIESEL ENGINE ENGINEER documented as of this encounter Medications at Time of Discharge venlafaxine (EFFEXOR-XR) 150 MG CAPSULE SR 24 HR Take 150 mg by mouth daily. 03/29/2022 venlafaxine (EFFEXOR-XR) 75 MG CAPSULE SR 24 HR Take 75 mg by mouth daily. 05/14/2022 documented as of this encounter Plan of Treatment Not on file documented as of this encounter Procedures Procedure Name Priority Date/Time Associated Diagnosis Comments XR FOOT 3 OR MORE VIEWS LEFT Routine 06/09/2022 11:33 AM DIESEL ENGINE ENGINEER Contusion of dorsum of foot XR ANKLE 3 OR MORE VIEWS LEFT Routine 06/09/2022 11:33 AM DIESEL ENGINE ENGINEER Contusion of dorsum of foot documented in this encounter Results * XR FOOT 3 OR MORE VIEWS LEFT (06/09/2022 11:33 AM DIESEL ENGINE ENGINEER) Anatomical Region Laterality Modality LOWER EXTREMITY, foot Left Digital Ra diography 06/11/2022 1:39 PM DIESEL ENGINE ENGINEER Impressions 06/11/2022 1:42 PM DIESEL ENGINE ENGINEER IMPRESSION: No acute fracture identified. Narrative 06/11/2022 1:42 PM DIESEL ENGINE ENGINEER EXAM DESCRIPTION: XR ANKLE 3 OR MORE VIEWS LEFT; XR FOOT 3 OR MORE VIEWS LEFT REASON FOR STUDY: Contusion of unspecified foot, initial encounter . Left foot and ankle pain. TECHNIQUE: Three views left ankle and three views left foot nonweightbearing submitted without comparison. FINDINGS: The ankle joint space and mortise appear normal. ??There are no fractures. ??There is no effusion. ??Tiny Achilles enthesophyte is present. ??The midfoot and forefoot joint spaces appear normal. THIS IS AN ELECTRONICALLY VERIFIED FINAL REPORT 06/11/2022 1:39 PM - Electronically signed by ??Pedro Castro M.D. MF: [email or web address] D: ??06/11/2022 1:39 PM T: ??06/11/2022 1:39 PM Report ID: [id number] Reading Location: ??[id number] Procedure Note Pedro Castro MD - 06/11/2022 EXAM DESCRIPTION: XR ANKLE 3 OR MORE VIEWS LEFT; XR FOOT 3 OR MORE VIEWS LEFT REASON FOR STUDY: Contusion of unspecified foot, initial encounter . Left foot and ankle pain. TECHNIQUE: Three views left ankle and three views left foot nonweightbearing submitted without comparison. FINDINGS: The ankle joint space and mortise appear normal. There are no fractures. There is no effusion. Tiny Achilles enthesophyte is present. The midfoot and forefoot joint spaces appear normal. THIS IS AN ELECTRONICALLY VERIFIED FINAL REPORT 06/11/2022 1:39 PM - Electronically signed by Pedro Castro M.D. MF: [email or web address] Report ID: [id number] Reading Location: [id number] IMPRESSION: No acute fracture identified. Raghav Blanco DPM IMG DIAGNOSTIC ORDERABLES Fi nal Result * XR ANKLE 3 OR MORE VIEWS LEFT (06/09/2022 11:33 AM DIESEL ENGINE ENGINEER) Anatomical Region Laterality Modality LOWER EXTREMITY, ankle Left Digital R adiography 06/11/2022 1:39 PM DIESEL ENGINE ENGINEER Impressions 06/11/2022 1:42 PM DIESEL ENGINE ENGINEER IMPRESSION: No acute fracture identified. Narrative 06/11/2022 1:42 PM DIESEL ENGINE ENGINEER EXAM DESCRIPTION: XR ANKLE 3 OR MORE VIEWS LEFT; XR FOOT 3 OR MORE VIEWS LEFT REASON FOR STUDY: Contusion of unspecified foot, initial encounter . Left foot and ankle pain. TECHNIQUE: Three views left ankle and three views left foot nonweightbearing submitted without comparison. FINDINGS: The ankle joint space and mortise appear normal. ??There are no fractures. ??There is no effusion. ??Tiny Achilles enthesophyte is present. ??The midfoot and forefoot joint spaces appear normal. THIS IS AN ELECTRONICALLY VERIFIED FINAL REPORT 06/11/2022 1:39 PM - Electronically signed by ??Pedro Castro M.D. MF: [email or web address] D: ??06/11/2022 1:39 PM T: ??06/11/2022 1:39 PM Report ID: [id number] Reading Location: ??[id number] Procedure Note Pedro Castro MD - 06/11/2022 EXAM DESCRIPTION: XR ANKLE 3 OR MORE VIEWS LEFT; XR FOOT 3 OR MORE VIEWS LEFT REASON FOR STUDY: Contusion of unspecified foot, initial encounter . Left foot and ankle pain. TECHNIQUE: Three views left ankle and three views left foot nonweightbearing submitted without comparison. FINDINGS: The ankle joint space and mortise appear normal. There are no fractures. There is no effusion. Tiny Achilles enthesophyte is present. The midfoot and forefoot joint spaces appear normal. THIS IS AN ELECTRONICALLY VERIFIED FINAL REPORT 06/11/2022 1:39 PM - Electronically signed by Pedro Castro M.D. MF: SONJA Report ID: [id number] Reading Location: [id number] IMPRESSION: No acute fracture identified. Raghav Blanco DPM IMPipo DIAGNOSTIC ORDERABLES Fi nal Result documented in this encounter Visit Diagnoses Diagnosis Contusion of dorsum of foot documented in this encounter Care Teams Chief Program Officer Relationship Specialty Start Date End Date Laila Danielle APRN, CNP [address] [place] [id number] PCP - General Family Medicine 05/30/22 Raghav Blanco DPM Podiatry 05/31/22 documented as of this encounter
--- OUTSIDE RECORDS SUMMARY | 2024-06-08 15:49 | XMS_ITS | Encounter Summary ---
Author Organization [facility] Address [address] [place] [address] Phone Care Team Providers Care State Appellate Clerk Name Role Phone Danielle, Lailazaira STEELE, PEANUT GRADER Primary Care Provider [phone] Raghav Blanco DPLela Unavailable Unavailable Reason for Visit * Reason Comments Foot Injury Follow up * Consult, Test & Initiate Treatment (Routine) - Closed Specialty Diagnoses / Procedures Referred By Contac t Referred To Contact Diagnoses Strain of unspecified muscle and tendon at ankle and foot level, left foot, initial encounter [facility] [address] [place] [address] Phone: tel: fax: Referral ID Status Reason Start Date Expiration Date Visits Re quested Visits Authorized [id number] Closed 1 1 Encounter Details Date Type Department Care Team (Late st Contact Info) Description 06/14/2022 9:30 AM WEB APPLICATION DEVELOPER Office Visit [facility] [address] [place] [address] Rhett De La Torre, DPM [address] [place], [place] [id number] Contusion of left foot, subsequent encounter (Primary Dx) Discharge Disposition: Discharged to home or Selfcare Social History Tobacco Use Types Packs/Day Years Used Date Smoking Tobacco: Never Smokeless Tobacco: Never Tobacco Cessation:Counseling Given: Not Answered Alcohol Use Standard Drinks/Week Comments Yes 0 [...] Coronavirus/COVID-19? No / Unsure 06/14/2022 9:19 AM WEB APPLICATION DEVELOPER documented as of this encounter Last Filed Vital Signs Vital Sign Reading Time Taken Comments Blood Pressure 120/74 06/14/2022 9:21 AM WEB APPLICATION DEVELOPER Pulse 88 06/14/2022 9:21 AM WEB APPLICATION DEVELOPER Temperature 36.5 ??C (97.7 ??F) 06/14/2022 9:21 AM CS T Respiratory Rate 18 06/14/2022 9:21 AM WEB APPLICATION DEVELOPER Oxygen Saturation 97% 06/14/2022 9:21 AM WEB APPLICATION DEVELOPER Inhaled Oxygen Concentration - - Weight 98.4 kg (217 lb) 06/14/2022 9:21 AM WEB APPLICATION DEVELOPER Height 172.7 cm (5' 8 ) 06/14/2022 9:21 AM WEB APPLICATION DEVELOPER Body Mass Index 32.99 06/14/2022 9:21 AM WEB APPLICATION DEVELOPER documented in this encounter Progress Notes * Rhett De La Torre, DPLela - 06/14/2022 9:30 AM CST [facility] [address], [address] [place] [address] 06/14/2022 Patient: Debo Quevedo : 1980 Subjective: 42-year-old female patient presents to clinic for follow-up of a left foot sprain. Patient states that she is improving in his been wearing the postop shoe however does still have pain with longer periods of ambulation. Patient has been using Aleve as needed. No Known Allergies Current Outpatient Medications: ??? meloxicam (MOBIC) 15 MG Tablet ??? venlafaxine (EFFEXOR-XR) 150 MG CAPSULE SR 24 HR ??? venlafaxine (EFFEXOR-XR) 75 MG CAPSULE SR 24 HR History reviewed. No pertinent past medical history. Past Surgical History: Procedure Laterality Date ??? TUBAL LIGATION ROS: Review of systems was negative, except as documented in HPI. Objective: Physical Exam: Constitutional: The patient is awake, alert, well developed, well nourished and well groomed. Cardiovascular: There is no edema of the lower extremities. The pedal pulses are 2+ and symmetrical. Musculoskeletal: Lower extremity muscle strength and range of motion is equal and symmetrical bilaterally. The knees are noted to be in normal alignment. Ankle alignment and range of motion is normaland foot structure is normal. Subtalar, metatarsal and metatarsal-phalangeal joint range of motion is noted to be within normal limits. The digits of both feet are in normal alignment. POP to plantaraspect of left lateral midfoot. Dermatologic: Skin has normal texture and turgur. No open ulceration. Nails 1- 10 in good repair. Neurologic: The deep tendon reflexes of the lower extremities are symmetrical and are graded at 2/4. Plantar reflexes (Babinski) reveals toes are downgoing and there is no ankle clonus. Sensory testing of the lower extremities for sharp.dull sensation, position, vibration and monofilament sensationis intact. There is no evidence of posterior tibial, superficial peroneal, or sural nerve pathology. There is no evidence of intermetatarsal neuroma bilaterally. Assessment and Plan Diagnoses and all orders for this visit: Contusion of left foot, subsequent encounter Other orders - meloxicam (MOBIC) 15 MG Tablet; Take 1 Tablet by mouth daily. Instructed patient to continue ambulating in post op shoe for 1 month as symptoms improve Released back to work starting tomorrow with restrictions. Must use post op shoe at all times Call office with concerns Meloxicam rx sent Rhett De La Torre DPM APPLICATION DEVELOPER documented in this encounter Plan of Treatment Not on file documented as of this encounter Visit Diagnoses Diagnosis Contusion of left foot, subsequent encounter- Primary documented in this encounter Care Teams State Appellate Clerk Relationship Specialty Start Date End Date Laila Danielle APRN, [place] [address] [place] [address] PCP - General Family Medicine 05/30/22 Raghav Blanco DPM Podiatry 05/31/22 documented as of this encounter
--- OUTSIDE RECORDS SUMMARY | 2024-06-08 15:49 | XMS_ITS | Clinical Summary ---
Author Organization [facility] Address [address] [place] [address] Care Team Providers Care Press Operator Assistant Name Role Phone Laila Danielle APRN KNIFE FINISHER Primary Care Provider [phone] Raghav Blanco DPLela Unavailable Unavailable Allergies No known active allergies Medications venlafaxine (EFFEXOR-XR) 150 MG CAPSULE SR 24 HR Take 150 mg by mouth daily. 2 Active venlafaxine (EFFEXOR-XR) 75 MG CAPSULE SR 24 HR Take 75 mg by mouth daily. 2 Active meloxicam (MOBIC) 15 MG Tablet Take 1 Tablet by mouth daily. 30 Tablet 2 3 Active Additional Information Patient not taking.Reported on 07/12/2022 Active Problems No known active problems Social History Tobacco Use Types Packs/Day Years [...] on file Sexual Orientation Not on file Last Filed Vital Signs Vital Sign Reading Time Taken Comments Blood Pressure 118/72 07/12/2022 9:14 AM CASINO CAGE SUPERVISOR Pulse 97 07/12/2022 9:14 AM CASINO CAGE SUPERVISOR Temperature 36.3 ??C (97.3 ??F) 07/12/2022 9:14 AM CS T Respiratory Rate 18 07/12/2022 9:14 AM CASINO CAGE SUPERVISOR Oxygen Saturation 98% 07/12/2022 9:14 AM CASINO CAGE SUPERVISOR Inhaled Oxygen Concentration - - Weight 98.4 kg (217 lb) 07/12/2022 9:14 AM CASINO CAGE SUPERVISOR Height 172.7 cm (5' 8 ) 07/12/2022 9:14 AM CASINO CAGE SUPERVISOR Body Mass Index 32.99 07/12/2022 9:14 AM CASINO CAGE SUPERVISOR Plan of Treatment Health Maintenance Due Date Last Done Comments Hepatitis C Virus (HCV) Screening 1980 Pap Smear 02/24/2001 Cervical Cancer Screening (CCS) 02/24/2010 HPV/Cotest 02/24/2010 Discussion re Starting/Frequency of Mammograms 2020 Influenza Immunization (#1) 02/10/202404/13, 07/23/2020, 03/11/2019, Additional history exists SARS-COV-2 Immunization ( season) 2024 05/10/2021, 08/28/2020, 08/07/2020 Respiratory Syncytial Virus (RSV) Immunization (Adult) (1 - 1-dose 75+ series) 02/24/2055 Hepatitis B Immunization Completed 998, 04/30/1997, 02/18/1997 DTaP/Tdap/Td Immunization Discontinued 2013, 01/27/1991, 09/11/1984, Additional history exists TdaP Immunization Completed 05/20/2014 Meningococcal Immunization (ACWY) Aged Out No longer eligible based on patient's age to complete this topic Pneumococcal Immunization Combined Aged Out No longer eligible based on patient's age to complete this topic Rotavirus Immunization Aged Out No lo nger eligible based on patient's age to complete this topic Insurance MEDICAID [place] Care Teams Press Operator Assistant Relationship Specialty Start Date End Date Danielle, CEDRIC Ull[place], KNIFE FINISHER [address] [place] [address] PCP - General Family Medicine 05/30/22 Raghav Blanco DPM Podiatry 05/31/22
--- OUTSIDE RECORDS SUMMARY | 2024-06-08 15:49 | XMS_ITS | Encounter Summary ---
Author Organization [facility] Care Team Providers Care Nail Tech Name Role Phone Laila Danielle APRN, CNP Primary Care Provider [phone] Raghav Blanco DPM Unavailable Unavailable Encounter Details Date Type Department Care Team (Latest Contact Info) Description 05/31/2022 Travel Social History Tobacco Use Types Packs/Day [...] suspected to have Coronavirus/COVID-19? No / Unsure 05/31/2022 1:04 PM URBAN FORESTER documented as of this encounter Plan of Treatment Not on file documented as of this encounter Visit Diagnoses Not on filedocumented in this encounter Care Teams Nail Tech Relationship Specialty Start Date End Date Laila Danielle APRN, CNP [address] [place] [address] PCP - General Family Medicine 05/30/22 Raghav Blanco DPM Podiatry 05/31/22 documented as of this encounter
--- OUTSIDE RECORDS SUMMARY | 2024-06-08 15:49 | XMS_ITS | Encounter Summary ---
Author Organization [facility] Care Team Providers Care Internet Sales Consultant Name Role Phone Laila Danielle APRN, CNP Primary Care Provider [phone] Raghav Blanco DPM Unavailable Unavailable Encounter Details Date Type Department Care Team (Latest Contact Info) Description 07/12/2022 Travel Social History Tobacco Use Types Packs/Day [...] suspected to have Coronavirus/COVID-19? No / Unsure 07/12/2022 9:12 AM PLASMA TABLE OPERATOR documented as of this encounter Plan of Treatment Not on file documented as of this encounter Visit Diagnoses Not on filedocumented in this encounter Care Teams Internet Sales Consultant Relationship Specialty Start Date End Date Laila Danielle APRN, CNP [address] [place] [address] PCP - General Family Medicine 05/30/22 Raghav Blanco DPM Podiatry 05/31/22 documented as of this encounter
--- OUTSIDE RECORDS SUMMARY | 2024-06-08 15:49 | XMS_ITS | Encounter Summary ---
Author Organization [facility] Address [address] [place] [address] Phone Care Team Providers Care Parenting Skills Instructor Name Role Phone Danielle, Laila HAMMONDSN, MOLD CARRIER Primary Care Provider [phone] Raghav Blanco DPLela Unavailable Unavailable Reason for Visit * Reason Comments Sprain Follow up Encounter Details Date Type Department Care Team (Late st Contact Info) Description 07/12/2022 9:45 AM STEAM SHOVEL OILER Office Visit [facility] - Podiatry [facility] [address] [place] [id number] Rhett De La Torre, DPM [address] [place] [address] Contusion of left foot, subsequent encounter (Primary Dx); Contusion of dorsum of foot Discharge Disposition: Discharged to home or Selfcare [...] Coronavirus/COVID-19? No / Unsure 07/12/2022 9:12 AM STEAM SHOVEL OILER documented as of this encounter Last Filed Vital Signs Vital Sign Reading Time Taken Comments Blood Pressure 118/72 07/12/2022 9:14 AM STEAM SHOVEL OILER Pulse 97 07/12/2022 9:14 AM STEAM SHOVEL OILER Temperature 36.3 ??C (97.3 ??F) 07/12/2022 9:14 AM CS T Respiratory Rate 18 07/12/2022 9:14 AM STEAM SHOVEL OILER Oxygen Saturation 98% 07/12/2022 9:14 AM STEAM SHOVEL OILER Inhaled Oxygen Concentration - - Weight 98.4 kg (217 lb) 07/12/2022 9:14 AM STEAM SHOVEL OILER Height 172.7 cm (5' 8 ) 07/12/2022 9:14 AM STEAM SHOVEL OILER Body Mass Index 32.99 07/12/2022 9:14 AM STEAM SHOVEL OILER documented in this encounter Progress Notes * Rhett De La Torre, DPLela - 07/12/2022 9:45 AM CST [facility] Podiatry [facility] [address] [facility], [address] [place] [address] 07/12/2022 Patient: Debo Quevedo : 1980 Subjective: Patient presents to clinic for follow up of left foot sprain. States she has no pain. Has not needed meloxicam recently. Has transitioned to regular shoe gear outside of work successfully. Still wearing shoe at work. No Known Allergies Current Outpatient Medications: ??? [...] of both feet are in normal alignment. The gain is normal. There is no pain to the area of the sprain. Dermatologic: Skin has normal texture and turgur. No open ulceration. Nails 1-10 in good repair. Neurologic: The deep tendon [...] visit: Contusion of left foot, subsequent encounter Contusion of dorsum of foot Patient instructed to return to regular shoe gear at all times and use post op shoe as necessary. Work note given to return to regular shoes. Patient to take meloxicam as needed. RTC as needed Rhett De La Torre DPM M SHOVEL OILER documented in this encounter Plan of Treatment Not on file documented as of this encounter Visit Diagnoses Diagnosis Contusion of left foot, subsequent encounter- Primary Contusion of dorsum of foot documented in this encounter Care Teams Parenting Skills Instructor Relationship Specialty Start Date End Date Laila Danielle APRN, MOLD CARRIER [address] [place] [id number] PCP - General Family Medicine 05/30/22 Raghav Blanco DPM Podiatry 05/31/22 documented as of this encounter
--- OUTSIDE RECORDS SUMMARY | 2024-06-08 15:49 | XMS_ITS | Clinical Summary ---
Author Organization [facility] [address] Address [address] [place] [address] Phone Care Team Providers Care General Farmer Name Role Phone Laila Danielle NP Primary Care Provider + [phone] Allergies No known active allergies Medications venlafaxine 225 mg tablet extended release 24hr 24 hr tablet Take 225 mg by mouth daily. Active fexofenadine (BENITO) 180 mg tablet Take 180 mg by mouth daily. 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 Overview (09/16/2016): Vulvodynia Vaginospasm 11/17/2013 01/12/2017 Overview (09/16/2016): Vaginismus Medical History Medical History Date Comments Vaginismus 2013 [facility] - gabapentin, amitriptyline Family History Medical History Relation Name Comments Migraines Brother Migraines; Breast cancer Father's Sister Cancer, faviola ast; Breast cancer Paternal Grandmother Cancer , breast; Relation Name Status Comments Brother Father's Sister Paternal Grandmother Social History Tobacco Use Types Packs/Day Years Used Date Smoking Tobacco: Never Smokeless Tobacco: Never Alcohol Use Standard Drinks/Week Comments Yes 0 (1 standard drink = 0.6 oz pur e alcohol) Comments No Sex and Gender Information Value Date Recorded Sex Assigned at Not on file Legal Sex Female 1:15 PM PHYSICIAN INDUSTRIAL Gender Identity Not on file Sexual Orientation Not on file 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 Not on file Not on file Obstetrics History Para Term AB IAB SAB Ectopic Multiple Livin g Live Births 3 3 3 0 0 3 Date Outcome GA Total Labor Labor/2nd/3rd Weight Sex Type Anes PTL Rosemarie A1 A5 Name Clin Term Term Term Last Filed Vital Signs Vital Sign Reading Time Taken Comments Blood Pressure 110/88 01/18/2018 9:52 AM CDT Pulse 78 05/14/2013 9:11 AM PHYSICIAN INDUSTRIAL Temperature - - Respiratory Rate - - Oxygen Saturation - - Inhaled Oxygen Concentration - - Weight 86.6 kg (191 lb) 01/18/2018 9:52 AM CDT Height 170.2 cm (5' 7 ) 03/30/2023 7:53 AM CDT Body Mass Index 29.47 01/18/2018 9:52 AM CDT Plan of Treatment Health Maintenance Due Date Last Done Comments Breast Cancer Screening-Mammogram 1980 Depression Screening 1980 Hepatitis C Screening 1980 Varicella Vaccines (1 of 2 - 13+ 2-dose series) 02/24/1993 Cervical Cancer Screening 01/12/2017 01/13/2016 Regular Well Visit/Exam 18-64 01/18/2019 01/18/2018, 01/12/2017 Covid-19 Vaccine ( season) 2024 05/10/2021, 08/28/2020, 08/07/2020 Influenza Vaccine (#1) 2024 , 07/23/2020, 03/11/2019, Additional history exists DTaP/Tdap/Td Vaccine (8 - Td or Tdap) 08/16/2032 08/16/2022, 05/20/2014, 01/27/1991, Additional history exists HPV Vaccines Aged Out No longer eligi ble based on patient's age to complete this topic Pneumococcal vaccine <65 Aged Out No longer eligible based on patient's age to complete this topic Procedures Procedure Name Priority Date/Time Associated Diagnosis Comments GENITAL FLUID PAP SMEAR, THIN PREP AND HPV Routine 01/13/2016 11:36 AM CDT from Last 3 Months or Most Recently Relevant to Health Maintenance Results * Genital fluid pap smear, thin prep and HPV (01/13/2016 11:36 AM CDT) Variable comment CDR HISTORICAL RESULTS Comment:NEGATIVE FOR INTRAEP ITHELIAL LESION AND MALIGNANCY. Statement of adequacy CDR HISTORICAL RESULTS Comment:Satisfactory for myesha luation. No endocervical component is identified. Human papillomavirus, genotype 18/45 Negative Negative CDR HISTORICAL RESULTS Comment: This test detects fourteen high-risk HPV types (16/18/31/33/35/39/45/ 51/52/56/58/59/66/68) without differentiation. Genital 01/13/2016 11:3 6 AM CDT us Historical Provider LAB CYTOLOGY ORDERABLES F inal Result CDR HISTORICAL RESULTS from Last 3 Months or Most Recently Relevant to Health Maintenance Insurance IDPA [facility] Care Teams General Farmer Relationship Specialty Start Date End Date Laila Danielle NP [address] [place] [address] PCP - General Nurse Practitioner 03/20/23
--- OUTSIDE RECORDS SUMMARY | 2024-06-08 15:49 | XMS_ITS | Encounter Summary ---
Author Organization [facility] Care Team Providers Care Division Manager Name Role Phone Laila Danielle APRN, CNP Primary Care Provider [phone] Raghav Blanco DPM Unavailable Unavailable Encounter Details Date Type Department Care Team (Latest Contact Info) Description 06/09/2022 Travel Social History Tobacco Use Types Packs/Day [...] Coronavirus/COVID-19? No / Unsure 06/09/2022 10:55 AM PIPELINE TECHNICIAN documented as of this encounter Plan of Treatment Not on file documented as of this encounter Visit Diagnoses Not on filedocumented in this encounter Care Teams Division Manager Relationship Specialty Start Date End Date Laila Danielle APRN, CNP [address] [place] [address] PCP - General Family Medicine 05/30/22 Raghav Blanco DPM Podiatry 05/31/22 documented as of this encounter
--- OUTSIDE RECORDS SUMMARY | 2024-06-08 15:49 | XMS_ITS | Referral Summary ---
Author Organization [facility] [address] Address [address] [place] [address] Phone Care Team Providers Care Powder Hand Name Role Phone Laila Danielle NP Primary Care Provider + [phone] Allergies No known active allergies Medications venlafaxine [...] Vulvodynia Vaginospasm 11/17/2013 01/12/2017 Overview (09/16/2016): Vaginismus Social History Tobacco Use Types Packs/Day Years Used Date Smoking Tobacco: Never Smokeless Tobacco: Never Alcohol Use Standard Drinks/Week Comments Yes 0 (1 standard drink = 0.6 oz pur e alcohol) Comments No Sex and Gender Information Value Date Recorded Sex Assigned at Not on file Legal Sex Female 1:15 PM DIRECTOR WOMEN Gender Identity Not on file Sexual Orientation Not on file 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 Not on file Not on file Last Filed Vital Signs Vital Sign Reading Time Taken Comments Blood Pressure 110/88 01/18/2018 9:52 AM CDT Pulse 78 05/14/2013 9:11 AM DIRECTOR WOMEN Temperature - - Respiratory Rate - - Oxygen Saturation - - Inhaled Oxygen Concentration - - Weight 86.6 kg (191 lb) 01/18/2018 9:52 AM CDT Height 170.2 cm (5' 7 ) 03/30/2023 7:53 AM CDT Body Mass Index 29.47 01/18/2018 9:52 AM CDT Plan of Treatment Not on file Procedures Procedure Name Priority Date/Time Associated Diagnosis [...] Relevant to Health Maintenance Insurance IDPA [facility] Care Teams Powder Hand Relationship Specialty Start Date End Date Laila Danielle NP [address] [place] [address] PCP - General Nurse Practitioner 03/20/23
--- OUTSIDE RECORDS SUMMARY | 2024-06-08 15:49 | XMS_ITS | Encounter Summary ---
Author Organization [facility] Address [address] [facility] [place] [address] Phone Care Team Providers Care Shoe Laster Name Role Phone Danielle, Laila CEDRIC, TRANSCRIBING MACHINE MECHANIC Primary Care Provider [phone] Raghav Blanco DPLela Unavailable Unavailable Encounter Details Date Type Department Care Team (Late st Contact Info) Description 06/14/2022 Telephone [facility] - Podiatry [facility] [address] [place] [address] Rhett De La Torre DPM [address] [place] [address] Social History Tobacco Use Types Packs/Day Years [...] Coronavirus/COVID-19? No / Unsure 06/14/2022 9:19 AM ACCOUNT UNDERWRITER documented as of this encounter Miscellaneous Notes * Telephone Encounter - Ruby Silva - 06/14/2022 9:30 AM CST Work note UNT UNDERWRITER documented in this encounter Plan of Treatment Not on file documented as of this encounter Visit Diagnoses Not on filedocumented in this encounter Care Teams Shoe Laster Relationship Specialty Start Date End Date Laila Danielle APRN, [place] [address] [place] [address] PCP - General Family Medicine 05/30/22 Raghav Blanco DPM Podiatry 05/31/22 documented as of this encounter
--- OUTSIDE RECORDS SUMMARY | 2024-06-08 15:49 | XMS_ITS | Data Portability ---
Author Organization [facility] JAIMERaji Address [address] [place] [address] Care Team Providers Care Lining Layer Name Role Phone LAILA GOSS Primary Care Provider CHINMAY HALL Coil Winder Unavailable Assessment No assessment recorded. Plan of Treatment Reminders Order Date Submit Date Provider Last Modified By Organization Details Last Modified Time Details Appointments ANY 15 2024 09:30A M Laila Goss APN, STITCHER HAND-C Not available Not available Not available Lab lipid panel, serum 2023 024 [facility], [address] [facility], [facility], [place], [address], 11/28/2023 12:13:57 HbA1c (hemogl obin A1c), blood 2023 024 [facility], [address] [facility], [facility], [place], [address], 11/28/2023 12:13:59 TSH, ultra-s ensitiv e, serum 2023 024 KATTY [facility], [address], [place], [address], 11/28/2023 12:13:58 CMP, serum or plasma 2023 024 KATTY [facility], [address], [place], [address], 11/28/2023 12:13:58 CBC 2023 024 [facility], [address], [address], [address], 11/28/2023 12:14:00 Referral None recorde d. Procedures None recorde d. Surgeries None recorde d. Imaging None recorde d. Medication Orders phenter mine 30 mg capsule 2022 023 [id number] [place], [address], 06/02/2024 10:48:39 venlafa xine ER 150 mg capsule ,extend ed release 24 hr 2022 [facility]23 [id number] [address] [place], [address], 02/28/2024 11:02:47 venlafa xine ER 225 mg tablet, extende d release 24 hr 2022 023 [id number] [place], [address], 04/28/2024 09:50:28 venlafa xine ER 75 mg capsule ,extend ed release 24 hr 2022 [facility]23 [id number] [address] [place], [address], 11/27/2023 10:34:18 amoxici llin 500 mg capsule 2022 023 [id number] [address] [place], [address], 08/27/2023 10:44:29 Victoza 3-Derian 0.6 mg/0.1 mL (18 mg/3 mL) subcuta neous pen injecto r 2023 024 [id number], [address] [place] [address], [id number], 02/28/2024 11:03:31 phenter mine 15 mg capsule 2023 024 [address] [place], [address], 04/28/2024 09:50:31 phenter mine 37.5 mg capsule 2023 024 [id number] [address] [place], [address], 06/02/2024 11:06:36 Vitamin D2 1,250 mcg (50,000 unit) capsule 2023 024 [id number], [address] [place], [address], 06/02/2024 11:06:20 venlafa xine ER 150 mg tablet, extende d release 24 hr 2023 024 [id number] [place], [address], 06/02/2024 11:06:31 Zithrom ax Z-Derian 250 mg tablet 2023 024 [id number], [address] [place], [address], 06/02/2024 11:06:21 Patient TargetsNo targets recorded. Patient Instructions Encounter Date Encounter Id Patient Instructions Last Modified By Organization Details Last Modified Time 05/24/2023 [id number] cholesterol and triglycerides tests: about these tests Not available 05/24/2023 11:28:01 When You Want to Lose Weight: Care Instructions Not available 05/24/2023 11:28:01 anxiety disorder : care instructions Not available 05/24/2023 11:28:01 Acute Sinusitis: Care Instructions Not available 05/24/2023 11:28:01 Take all antibiotics prescribed to you. If any fever or increase in pain, call/return to office. Not available 05/24/2023 11:28:36 f/u 3 months DWP barriers to care: none Not available 05/24/2023 11:28:49 08/27/2023 [id number] cholesterol and triglycerides tests: about these tests Not available 08/27/2023 11:15:44 When You Want to Lose Weight: Care Instructions Not available 08/27/2023 11:15:44 anxiety disorder : care instructions Not available 08/27/2023 11:15:44 Increase intake of fresh fruits,?? and vegetables. Avoid packaged foods and fast foods. ?? Follow a low salt diet, drink at least 8-10 8oz glasses of water a day, exercise most days of the week. Take all medications as prescribed. Keep appointments with PCP and all specialists. Not available 08/29/2023 18:11:18 f/u 3 months DWP barriers to care: none Not available 08/27/2023 11:14:12 11/27/2023 [id number] cholesterol and triglycerides tests: about these tests Not available 11/27/2023 10:51:28 When You Want to Lose Weight: Care Instructions Not available 11/27/2023 10:51:27 anxiety disorder : care instructions Not available 11/27/2023 10:51:27 Increase intake of fresh fruits,?? and vegetables. Avoid packaged foods and fast foods. ?? Follow a low salt diet, drink at least 8-10 8oz glasses of water a day, exercise most days of the week. Take all medications as prescribed. Keep appointments with PCP and all specialists. Not available 11/27/2023 10:42:35 f/u 3 months DWP barriers to care: none Not available 11/27/2023 10:42:36 02/28/2024 [id number] influenza (flu) vaccine: care instructions Not available 02/28/2024 11:24:34 cholesterol and triglycerides tests: about these tests Not available 02/28/2024 11:24:28 When You Want to Lose Weight: Care Instructions Not available 02/28/2024 11:24:28 anxiety disorder : care instructions Not available 02/28/2024 11:24:28 Increase intake of fresh fruits,?? and vegetables. Avoid packaged foods and fast foods. ?? Follow a low salt diet, drink at least 8-10 8oz glasses of water a day, exercise most days of the week. Take all medications as prescribed. Keep appointments with PCP and all specialists. Not available 02/28/2024 11:13:15 f/u 3 months DWP barriers to care: none Not available 02/28/2024 11:13:16 06/02/2024 [id number] upper respirator y infection (cold): care instructions Not available 06/02/2024 11:06:13 Increase intake of fresh fruits,?? and vegetables. Avoid packaged foods and fast foods. ?? Follow a low salt diet, drink at least 8-10 8oz glasses of water a day, exercise most days of the week. Take all medications as prescribed. Keep appointments with PCP and all specialists. Not available 06/02/2024 11:06:55 f/u 3 months DWP barriers to care: none Not available 06/02/2024 11:07:00 Reason for Referral None Reported. Results Created Date Observation Date Name Description Value Unit Range Abnormal Flag Note LastModifiedBy Organization Detail LastModifiedTime 11/27/19 24 11/28/2023 LIPID PANEL cholesterol, total 254 mg/dL 100-19 9 above high normal Not Available [facility] ([facility]) [address], [place], [place], [address], 11/28/2023 12:13:57 11/27/19 24 11/28/2023 LIPID PANEL triglyceride s 450 mg/dL 0-149 above high normal Not Available [facility] ([facility]) [address], [place], [place], [address], 11/28/2023 12:13:57 11/27/19 24 11/28/2023 LIPID PANEL HDL cholesterol 47 mg/dL >39 Not Available [facility]) [address] [place], [address], 11/28/2023 12:13:57 11/27/19 24 11/28/2023 LIPID PANEL VLDL cholesterol jose 80 mg/dL 5-40 above high normal Not Available [facility] ([facility]) [address] [place], [address], 11/28/2023 12:13:57 11/27/19 24 11/28/2023 LIPID PANEL LDL chol calc ([facility]) 127 mg/dL 0-99 above high normal Not Available [facility] ([facility]) [address] [place], [address], 11/28/2023 12:13:57 11/27/19 24 11/28/2023 COMP. METAB OLIC PANEL (14) glucose 97 mg/dL 70-99 Not Available [facility] ([facility]) [address] [place], [address], 11/28/2023 12:13:58 11/27/19 24 11/28/2023 COMP. METAB OLIC PANEL (14) BUN 13 mg/dL 6-24 Not Available [facility] ([facility]) [address] [place], [address], 11/28/2023 12:13:58 11/27/19 24 11/28/2023 COMP. METAB OLIC PANEL (14) creatinine 0.60 mg/dL 0.57-1 .00 Not Available [facility] ([facility]) [address] [place], [address], 11/28/2023 12:13:58 11/27/19 24 11/28/2023 COMP. METAB OLIC PANEL (14) eGFR 114 mL/mi n/1.7 3 >59 Not Available [facility] ([facility]) [address] [place], [address], 11/28/2023 12:13:58 11/27/19 24 11/28/2023 COMP. METAB OLIC PANEL (14) BUN/creatini ne ratio 22 9-23 Not Available [facility] ([facility]) [address], [place], [address], 11/28/2023 12:13:58 11/27/19 24 11/28/2023 COMP. METAB OLIC PANEL (14) sodium 143 mmol/ L 134-14 4 Not Available [facility] ([facility]) [address], [place], [address], 11/28/2023 12:13:58 11/27/19 24 11/28/2023 COMP. METAB OLIC PANEL (14) potassium 4.9 mmol/ L 3.5-5. 2 Not Available [facility] ([facility]) [address], [place], [address], 11/28/2023 12:13:58 11/27/19 24 11/28/2023 COMP. METAB OLIC PANEL (14) chloride 104 mmol/ L 96-106 Not Available [facility] ([facility]) [address], [place], [address], 11/28/2023 12:13:58 11/27/19 24 11/28/2023 COMP. METAB OLIC PANEL (14) carbon dioxide, total 23 mmol/ L 20-29 Not Available [facility] ([facility]) [address], [place], [address], 11/28/2023 12:13:58 11/27/19 24 11/28/2023 COMP. METAB OLIC PANEL (14) calcium 9.3 mg/dL 8.7-10 .2 Not Available [facility] ([facility]) [address], [place], [address], 11/28/2023 12:13:58 11/27/19 24 11/28/2023 COMP. METAB OLIC PANEL (14) protein, total 6.2 g/dL 6.0-8. 5 Not Available [facility] ([facility]) [address], [place], [place], [address], 11/28/2023 12:13:58 11/27/19 24 11/28/2023 COMP. METAB OLIC PANEL (14) albumin 4.0 g/dL 3.9-4. 9 Not Available [facility] ([facility]) [address], [place], [place], [address], 11/28/2023 12:13:58 11/27/19 24 11/28/2023 COMP. METAB OLIC PANEL (14) globulin, total 2.2 g/dL 1.5-4. 5 Not Available [facility] ([facility]) [address], [place], [place], [address], 11/28/2023 12:13:58 11/27/19 24 11/28/2023 COMP. METAB OLIC PANEL (14) bilirubin, total <0.2 mg/dL 0.0-1. 2 Not Available [facility] ([facility]) [address], [place], [place], [address], 11/28/2023 12:13:58 11/27/19 24 11/28/2023 COMP. METAB OLIC PANEL (14) alkaline phosphatase 75 IU/L 44-121 Not Available [facility] ([facility]) [address], [place], [place], [address], 11/28/2023 12:13:58 11/27/19 24 11/28/2023 COMP. METAB OLIC PANEL (14) AST (SGOT) 30 IU/L 0-40 Not Available [facility] ([facility]) [address], [place], [place], [address], 11/28/2023 12:13:58 11/27/19 24 11/28/2023 COMP. METAB OLIC PANEL (14) ALT (SGPT) 25 IU/L 0-32 Not Available [facility] ([facility]) [address], [place], [place], [address], 11/28/2023 12:13:58 11/27/19 24 11/28/2023 TSH RFX ON ABNOR MAL TO FREE T4 TSH 1.400 uIU/m L 0.450- 4.500 Not Available [facility] ([facility]) [address] [place], [address], 11/28/2023 12:13:58 11/27/19 24 11/28/2023 HEMOG LOBIN A1C hemoglobin A1C 5.5 % 4.8-5. 6 Predi abete s: 5.7 - 6.4 Diabe jos: >6.4 Glyce rosangela contr ol for adult s with diabe jos: <7.0 Not Available [facility] ([facility]) [address], [place], [place], [address], 11/28/2023 12:13:59 11/27/19 24 11/28/2023 CBC, NO DIFFE RENTI AL/PL ATELE T WBC 5.9 x10e3 /uL 3.4-10 .8 Not Available [facility] ([facility]) [address] [place], [address], 11/28/2023 12:14:00 11/27/19 24 11/28/2023 CBC, NO DIFFE RENTI AL/PL ATELE T RBC 5.11 x10e6 /uL 3.77-5 .28 Not Available [facility] ([facility]) [address] [place], [address], 11/28/2023 12:14:00 11/27/19 24 11/28/2023 CBC, NO DIFFE RENTI AL/PL ATELE T hemoglobin 12.5 g/dL 11.1-1 5.9 Not Available [facility] ([facility]) [address] [place], [address], 11/28/2023 12:14:00 11/27/19 24 11/28/2023 CBC, NO DIFFE RENTI AL/PL ATELE T hematocrit 39.9 % 34.0-4 6.6 Not Available [facility] ([facility]) [address] [place], [address], 11/28/2023 12:14:00 11/27/19 24 11/28/2023 CBC, NO DIFFE RENTI AL/PL ATELE T MCV 78 fL 79-97 below low normal Not Available [facility] ([facility]) [address] [place], [address], 11/28/2023 12:14:00 11/27/19 24 11/28/2023 CBC, NO DIFFE RENTI AL/PL ATELE T MCH 24.5 pg 26.6-3 3.0 below low normal Not Available [facility] ([facility]) [address] [place], [address], 11/28/2023 12:14:00 11/27/19 24 11/28/2023 CBC, NO DIFFE RENTI AL/PL ATELE T MCHC 31.3 g/dL 31.5-3 5.7 below low normal Not Available [facility] ([facility]) [address] [place], [address], 11/28/2023 12:14:00 11/27/19 24 11/28/2023 CBC, NO DIFFE RENTI AL/PL ATELE T RDW 15.0 % 11.7-1 5.4 Not Available [facility] ([facility]) [address] [place], [address], 11/28/2023 12:14:00 11/27/19 24 11/28/2023 CBC, NO DIFFE RENTI AL/PL ATELE T NRBC - Eff ectiv e January 07, 2024, zane agudelo [address]68 7 CBC, No Diffe renti al, No Plate let will be made non-o rdera ble. [facility] rp Offer s: [id number] 9 CBC With Diffe renti al/Pl atele t 39754 2 CBC, Plate let, No Diffe renti al Not Available [facility] ([facility]) [address], [place], [place], [address], 11/28/2023 12:14:00 Result Notes None recorded. Problems Name Problem SNOMED Code Status Onset Date Resolution Date Notes Provider Name and Address Organization Details Recorded Time [place] 707126341 Active 2016 Laila Goss APN, FNP-C Attn: Accountin g,[address] [facility], [place], [address], [place] [facility] 4 10:45:26 Infectio n due to resistan t organism Active 2017 Bactrim resistant e. coli on urine cx Laila Goss APN, FNP-C Attn: Accountin g,[address] [facility], [place], [address], [place] [facility] 4 10:45:26 Mixed hyperlip idemia 355476282 Active 2019 Laila Goss APN, FNP-C Attn: Accountin g,[address] [facility], [place], [address], [place] [facility] 4 10:45:26 Vitamin D deficien cy 12760617 Active 2020 Laila Goss APN, FNP-C Attn: Accountin g,[address] [facility], [place], [address], [place] [facility] 4 10:45:26 Edema of lower extremit y 454127804 Active 2021 Laila Goss APN, FNP-C Attn: Accountin g,[address] [facility], [place], [address], [place] [facility] 4 10:45:26 Obesity 619088923 Active 2022 Laila Goss APN, FNP-C Attn: Accountin g,[address] [facility], [place], [address], [place] [facility] 4 10:45:26 Obesity 676884554 Completed 04/30/2017 Laila Goss APN, FNP-C Attn: Erasmo yanez,[address] [facility], [place], [address], [facility] 3 16:43:07 Anxiety 44206768 Completed 04/24/2016 Removal Reason: duplicate Fernanda Robles PA-C Attn: Erasmo yanez,[address] [facility], [place], [place], [address] [place] [address] 2, [facility] - SI 6 08:37:52 Abnormal weight gain 962621752 Active Lailazaira Goss APN, FNP-C Attn: Erasmo yanez,[address] [place], [place], [address] [place] [address] 2, [facility] 4 10:45:26 Generali zed anxiety disorder 31537372 Active Laila Goss APN, FNP-C Attn: Erasmo yanez,[address] [place], [place], [address] [place] [address] 2, [facility], [facility] 4 10:45:26 [place] ht 178903184 Active Lailazaira Goss APN, FNP-C Attn: Erasmo yanez,[address] [place], [address], [facility], [facility] 4 10:45:26 Problem Notes None recorded. Procedures Surgical History Date Name Laterality Status Provider Name and Address Organization Details Recorded Time 0 Date of Last Pap Smear completed Jalyn Rodriguez [facility] 01/25/2021 09:55:06 1 Tubal Ligation completed MEIR Sweet [facility] 05/15/2017 10:13:47 Imaging Results None recorded. Procedure Notes None recorded. Medical Equipment None Reported. Allergies No known drug allergies Medications Name Sig Start Date Stop Date Status Note LastModified by Organization Details LastModified Time cyclobenz aprine 10 mg tablet TAKE ONE TABLET BY MOUTH EVERY DAY NEEDED 04/30 completed Not Available Not Available Not Available amoxicill in 500 mg capsule TAKE 1 CAPSULE BY MOUTH EVERY 8 HOURS FOR 10 DAYS 08/26 completed Not Available Not Available Not Available promethaz ine-DM 6.25 mg-15 mg/5 mL oral syrup TAKE 5 ML BY MOUTH EVERY 4 TO 6 HOURS NEEDED FOR COUGH 08/21 completed Not Available Not Available Not Available venlafaxi ne ER 37.5 mg capsule,e xtended release 24 hr Take 2 capsules every day by oral route. 07/12 completed 06/13/16 increase d to 150mg daily Not Available Not Available Not Available prednison e 10 mg tablet TAKE 4 TABS/DAY X3DAYS, 3TABS/DA Y X3DAYS, 2TABS/DA Y X3DAYS, 1TAB/DAY X3DAYS 02/07 completed Not Available Not Available Not Available venlafaxi ne ER 75 mg capsule,e xtended release 24 hr TAKE 1 CAPSULE BY MOUTH EVERY DAY 11/26 completed Not Available Not Available Not Available hydrocodo ne 5 mg-acetam inophen 325 mg tablet 08/21 completed Not Available Not Available Not Available meloxicam 15 mg tablet TAKE 1 TABLET BY MOUTH EVERY DAY 08/21 completed Not Available Not Available Not Available prednison e 20 mg tablet TAKE 2 TABLETS BY MOUTH ONCE DAILY 08/21 completed Not Available Not Available Not Available Zithromax Z-Derian 250 mg tablet TAKE 2 TABLETS (500 MG) BY ORAL ROUTE ONCE DAILY FOR 1 DAY THEN 1 TABLET (250 MG) BY ORAL ROUTE ONCE DAILY FOR 4 DAYS 2023 active Not Available Not Available Not Avai lable phentermi ne 15 mg capsule TAKE 1 CAPSULE BY MOUTH EVERY DAY 04/28 completed Not Available Not Available Not Available venlafaxi ne ER 150 mg capsule,e xtended release 24 hr TAKE 1 CAPSULE BY MOUTH EVERY DAY 02/27 completed Not Available Not Available Not Available ciproflox acin 250 mg tablet Take 1 tablet every 12 hours by oral route for 5 days. 06/18 completed Not Available Not Available Not Available ciproflox acin 500 mg tablet 05/15 completed finished Not Available Not Available Not Available sulfameth oxazole 800 mg-trimet hoprim 160 mg tablet Take 1 tablet every 12 hours by oral route for 5 days. 05/13 completed Not Available Not Available Not Available phentermi ne 30 mg capsule TAKE 1 CAPSULE BY MOUTH EVERY DAY 08/26 completed Not Available Not Available Not Available amoxicill in 500 mg tablet TAKE 1 ORAL TABLET 2 TIMES A DAY. TAKE WITH PROBIOTI C. TAKE UNTIL GONE. 05/09 completed Not Available Not Available Not Available amoxicill in 875 mg tablet TAKE 1 TABLET BY MOUTH EVERY 12 HOURS 02/27 completed Not Available Not Available Not Available amitripty line 10 mg tablet Take 4 tablets every day by oral route at dinner. 07/12 completed Not Available Not Available Not Available diazepam 2 mg tablet Take 1 tablet 3 times a day by oral route as needed. 07/12 completed Not Available Not Available Not Available doxycycli ne monohydra te 100 mg capsule TAKE 1 CAPSULE BY MOUTH TWICE A DAY 02/07 completed Not Available Not Available Not Available cephalexi n 500 mg capsule TAKE 1 CAPSULE BY MOUTH EVERY 6 HOURS FOR 10 DAYS 10/09 completed Not Available Not Available Not Available triamcino lone acetonide 0.1 % topical ointment APPLY SPARINGL Y TO AFFECTED AREA EVERY DAY active Not Available Not Available No t Available prednison e 50 mg tablet 05/08 completed rx from urgent care, pt finshed all meds Not Available Not Available Not Available gabapenti n 300 mg capsule Take 1 capsule by oral route as directed . 05/15 completed pt states she is not taking this med 05/15/17 Not Available Not Available Not Available gabapenti n 100 mg capsule Take 2 capsules every day by oral route. 04/24 completed Rx given by Dr. Whitfield edwin Not Available Not Available Not Available Vitamin D2 1,250 mcg (50,000 unit) capsule Take 1 capsule every week by oral route. 2023 active Not Available Not Available Not Avai lable ondansetr on 4 mg disintegr ating tablet 07/12 completed Not Available Not Available Not Available fluticaso ne propionat e 50 mcg/actua tion nasal spray,per pension [place] 1 spray every day by intranas al route. 06/18 completed prn Not Available Not Available Not Available doxycycli ne hyclate 100 mg tablet TAKE 1 TABLET BY MOUTH EVERY 12 HOURS FOR 10 DAYS 07/01 completed Not Available Not Available Not Available phentermi ne 37.5 mg capsule Take 1 capsule every day by oral route. 2023 active Not Available Not Available Not Avai lable amoxicill in 875 mg-potass ium clavulana te 125 mg tablet TAKE 1 TABLET BY MOUTH EVERY 12 HOURS 10/09 completed Not Available Not Available Not Available Fish Oil Concentra te 1,000 mg capsule Take 2 capsules every day by oral route. 07/16 completed Not Available Not Available Not Available escitalop antonio 10 mg tablet TAKE 1 TABLET BY ORAL ROUTE EVERY DAY active Not Available Not Available No t Available nitrofura ntoin monohydra te/macroc rystals 100 mg capsule Take 1 capsule every 12 hours by oral route for 5 days. 01/19 completed Not Available Not Available Not Available Zyrtec active Not Available Not Availa ble Not Available multivita min active Not Available Not Available Not Available Fish Oil 300 mg-500 mg capsule TAKE 2 CAPSULES BY MOUTH EVERY DAY 07/01 completed Not Available Not Available Not Available omega-3 fatty acids-fis h oil 300 mg-1,000 mg capsule TAKE 2 CAPSULES BY MOUTH EVERY DAY active Not Available Not Available No t Available Fish Oil 300 mg-1,000 mg capsule TAKE 2 CAPSULES BY MOUTH EVERY DAY-*PT MUST CALL OFC TO SCHEDULE APT IN JUN 2020 2019 active Not Available Not Available Not Avai lable venlafaxi ne ER 225 mg tablet,ex tended release 24 hr TAKE 1 TABLET BY MOUTH EVERY DAY active Not Available Not Available No t Available venlafaxi ne ER 150 mg tablet,ex tended release 24 hr Take 1 tablet every day by oral route. 2023 active Not Available Not Available Not Avai lable Shyla Allergy 180 mg tablet Take 1 tablet every day by oral route. 06/18 completed prn Not Available Not Available Not Available Victoza 2-Derian 0.6 mg/0.1 mL (18 mg/3 mL) subcutane ous pen injector ADMINIST ER 1.2 MG UNDER THE SKIN EVERY DAY 02/27 completed Not Available Not Available Not Available TRUEplus Pen Needle 32 gauge x 5/32 USE ONCE DAILY. 06/02 completed Not Available Not Available Not Available Vitals Date Recorded Body height Body mass index (BMI) Body weight Oxygen saturation Oxygen saturation in Arterial blood by Pulse oximetry Heart rate Body temperature Systolic blood pressure Diastolic blood pressure Provider Name and Address Organization Details Last Updated DateTime 3 172.72 cm 33.2 kg/m2 56899.8 9 g 99 % 99 % 110 /min 97.8 [degF] 124 mm[Hg] 82 mm[Hg] Donna Yadav MA [facility] 3 10:49:52 Date Recorded Body height Body mass index (BMI) Body weight Oxygen saturation Oxygen saturation in Arterial blood by Pulse oximetry Heart rate Respiratory rate Body temperature Systolic blood pressure Diastolic blood pressure Provider Name and Address Organization Details Last Updated DateTime 4 172.72 cm 33.3 kg/m2 05232.7 3 g 99 % 99 % 104 /min 16 /min 97.5 [degF] 128 mm[Hg] 92 mm[Hg] MEIR Sexton [facility] 4 10:46:55 Date Recorded Systolic blood pressure Diastolic blood pressure Provider Name and Address Organization Details Last Updated DateTime 08/27/2023 132 mm[Hg] 88 mm[Hg] Laila Goss APN, STITCHER HAND-C Attn: Accounting,[address] [place], [address], [facility] 08/27/2023 11:16:57 Date Recorded Body height Body mass index (BMI) Body weight Oxygen saturation Oxygen saturation in Arterial blood by Pulse oximetry Heart rate Respiratory rate Body temperature Systolic blood pressure Diastolic blood pressure Provider Name and Address Organization Details Last Updated DateTime 4 172.72 cm 33.5 kg/m2 40459.3 2 g 97 % 97 % 97 /min 16 /min 97.5 [degF] 120 mm[Hg] 76 mm[Hg] Gabi Ríos MA [facility] 4 10:36:27 Date Recorded Body height Body mass index (BMI) Body weight Oxygen saturation Oxygen saturation in Arterial blood by Pulse oximetry Respiratory rate Body temperature Heart rate Systolic blood pressure Diastolic blood pressure Provider Name and Address Organization Details Last Updated DateTime 4 172.72 cm 31.9 kg/m2 69334.4 g 98 % 98 % 16 /min 97.8 [degF] 80 /min 116 mm[Hg] 80 mm[Hg] MEIR Sexton [facility] 4 11:04:49 Date Recorded Body height Body mass index (BMI) Body weight Oxygen saturation Oxygen saturation in Arterial blood by Pulse oximetry Respiratory rate Body temperature Heart rate Systolic blood pressure Diastolic blood pressure Provider Name and Address Organization Details Last Updated DateTime 4 172.72 cm 33.6 kg/m2 665591. 91 g 98 % 98 % 16 /min 97.8 [degF] 80 /min 130 mm[Hg] 84 mm[Hg] MEIR Sexton [facility] 4 10:25:16 Social History Question Answer Notes LastModified by Organizat ion Details LastModified Time Tobacco Smoking Status Never Smoker HAFSA Adams, [facility] 05/12/2014 14:27:50 Do You Have An Advance Directive? No Information not available 07/09/2019 What Is Your Level Of Alcohol Consumption? Occasional Information not available 05/12/2014 Are You Blind Or Do You Have Difficulty Seeing? No Information not available 01/19/2021 Is Blood Transfusion Acceptable In An Emergency? Yes Information not available 06/18/2019 What Is Your Level Of Caffeine Consumption? None Information not available 05/24/2023 How Much Tobacco Do You Chew? None Information not available 12/16/2018 In The 14 Days Before Symptom Onset, Have You Had Close Contact With A Laboratory-confir med COVID-19 While That Case Was Ill? No Information not available 12/22/2019 In The 14 Days Before Symptom Onset, Have You Had Close Contact With A Person Who Is Under Investigation For COVID-19 While That Person Was Ill? No Information not available 12/22/2019 Have You Been To An Area Known To Be High Risk For COVID-19? No Information not available 12/22/2019 Are You Currently Employed? Yes Information not available 06/18/2019 Are You Deaf Or Do You Have Serious Difficulty Hearing? No Information not available 01/19/2021 What Type Of Diet Are You Following? REGULAR Eating Healthy [email or web address] Information not available 08/21/2022 Which Illicit Or Recreational Drugs Have You Used? Denies Information not available 06/18/2019 Do You Or Have You Ever Used E-cigarettes Or Vape? Never Used Electronic Cigarettes Information not available 07/09/2019 Education 12 Information no t available 06/18/2019 What Is The Highest Grade Or Level Of School You Have Completed Or The Highest Degree You Have Received? 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 No [email or web address] Information no t available 01/25/2021 Are There Any Guns Present In Your Home? No Information not available 07/09/2019 Hard Of Hearing Or Deaf In One Or Both Ears? No Information not available 12/22/2019 Legally Blind In One Or Both Eyes? No Information no t available 12/22/2019 Live Alone Or With Others? With Others Information not available 06/18/2019 Do You Have A High School Diploma Or Higher Education? Yes Information not available 07/16/2020 Do You Sometimes Have To Miss Your Medical Appointments Due To Difficult Getting Transportation? No Information not available 07/16/2020 Do You Feel Unfairly Treated Due To Things Such As Race, Age, Gender, Disability Or Some Other Reason? No Information not available 07/16/2020 Do You Feel Physically And Emotionally Safe While Living At Home? Yes Information not available 07/16/2020 Do You Feel Physically And Emotionally Safe In Your Neighborhood Or Other Public Places? Yes Information not available 07/16/2020 Marital Status Informatio n not available 07/01/2020 What Was The Date Of Your Most Recent Tobacco Screening? 06/02/2024 Information not available 06/02/2024 How Many Children Do You Have? 3 Information not available 06/18/2019 Performs Monthly Self-breast Exam? Yes Information no t available 04/24/2016 Do You Use Protection During Sex? No Information not available 06/18/2019 What Is Your Relationship Status? Information not available 06/18/2019 Do You Use Your Seat Belt Or Car Seat Routinely? Yes Information not available 01/19/2021 Seat Belts Used Routinely Yes Information not available 06/18/2019 Are You Sexually Active? Yes Information not available 06/18/2019 Smoke Alarm In Home Yes Information not available 07/09/2019 Do You Have Smoke And Carbon Monoxide Detectors In Your Home? Yes Information not available 01/19/2021 Are You Passively Exposed To Smoke? No Information no t available 01/19/2021 Do You Or Have You Ever Used Smokeless Tobacco? Never Used Smokeless Tobacco Information not available 07/09/2019 How Much Tobacco Do You Smoke? No Information not available 05/12/2014 General Stress Level Medium Information not available 04/24/2016 Do You Feel Stressed (tense, Restless, Nervous, Or Anxious, Or Unable To Sleep At Night)? [id number] Information not available 08/27/2023 Do You Use Any Illicit Or Recreational Drugs? No Information not available 01/19/2021 Do You Use Sunscreen Routinely? Yes Information not available 06/18/2019 Has Tobacco Cessation Counseling Been Provided? Yes [email or web address] Information not available 02/07/2022 On What Date Was Tobacco Cessation Counseling Provided? 06/02/2024 Information not available 06/02/2024 Do You Or Have You Ever Used Any Other Forms Of Tobacco Or Nicotine? No Information not available 01/19/2021 Sex: Female Functional Status Question Answer Note LastModified by Organizat ion Details LastModified Time Are you able to care for yourself? Yes Information not available 01/19/2021 What is your exercise level? Moderate walks dog Information not available 07/01/2020 Mental Status None recorded. Family History Relationship Description Onset Age of this Age Resolved Age Notes LastModified by Organization Details LastModified Time Mother Asthma [email or web address] Not availabl e 05/12/2014 14:27:50 Mother Depressive disorder [email or web address] Not available 07/2013 14:27:50 Mother Osteoporosis [email or web address] Not av ailable 05/12/2014 14:27:50 Mother Essential hypertension [email or web address] Not available 11:04:13 Father Migraine cgrandberry Not availa ble 05/12/2014 14:27:50 Father Essential hypertension [email or web address] Not available 1 07/13/2013 14:27:50 Father Hypercholest erolemia [email or web address] Not available 06/18 11:04:52 Maternal Grandfather Essential hypertension [email or web address] Not available 11:04:19 Paternal Grandmother Malignant tumor of breast 70 [email or web address] Not available 06/18 11:04:44 Medical History Condition Response Coronary Artery Disease N Other N High Blood Pressure N Breast Cancer N Blood Clots N COPD N Depression N Lung Disease N Breast Problem N Anesthesia Complications N Headaches/Migraines Y Anxiety Disorder Y Muscle, Joint, or Bone Problems N Polyps N Infertility N Acid Reflux (GERD) N Cancer N Stroke N ADHD N Endometriosis N High Cholesterol N Liver Disease N Headaches N Schizophrenia N Thyroid Problems N Kidney or Bladder Problems N GI Problems N Acne N Eating Disorder N Skin Problems N Anemia N Heart Attack ([place]) N Diabetes N Ovarian Cancer N Blood Transfusions N Seizures/Epilepsy N Abuse/Domestic Violence N Asthma N Allergies Y Substance Abuse N Hepatitis N Heart Disease N Pre-Eclampsia N Heart Failure N Osteoporosis N Gynecological History Statement/Question Response Abnormal Pap N Date of Last Mammogram Flow Moderate Date of LMP 05/23/2024 On BCP's at Conception? Y STIs/STDs N HPV Vaccine N Duration of Flow (days) 4 Most Recent Mammogram Age at Menarche 12 Current Control Method Tubal Ligat ion Age at First Child 23 Sexually Active? Y Menses Monthly Y Date of Last Pap Smear 06/18/2019 Sexual Problems? N LMP Definite Obstetrics History GPAL:G 3 P 3 0 0 3 Type Value Multiple Births 0 Full Term 3 Induced 0 Spontaneous 0 Premature 0 Living 3 Ectopics 0 Total 3 Immunizations Vaccine Type Date Status Note Provider Nam e and Address Organization Details Recorded Time Influenza, split virus, quadrivalent, preservative 9 completed Not Available [facility] 03/30/2023 09:57:45 COVID-19, mRNA, LNP-S, PF, 30 mcg/0.3 mL dose 1 completed Not Available [facility] 03/30/2023 09:57:45 COVID-19, mRNA, LNP-S, PF, 30 mcg/0.3 mL dose 1 completed Not Available [facility] 03/30/2023 09:57:45 OPV 2 completed Not Available [facility] 03/30/2023 09:57:45 Hep B, adolescent or pediatric 8 completed Not Available [facility] 03/30/2023 09:57:45 DTP 0 completed Not Available [facility] 03/30/2023 09:57:45 DTP 1 completed Not Available [facility] 03/30/2023 09:57:45 OPV 5 completed Not Available [facility] 03/30/2023 09:57:45 OPV 0 completed Not Available [facility] 03/30/2023 09:57:45 MMR 2 completed Not Available [facility] 03/30/2023 09:57:45 Td (adult), 2 Lf tetanus toxoid, preservative free, adsorbed 1 completed Not Available [facility] 03/30/2023 09:57:45 Td (adult), 2 Lf tetanus toxoid, preservative free, adsorbed 5 completed Not Available [facility] 03/30/2023 09:57:45 Hib, unspecified formulation 5 completed Not Available [facility] 03/30/2023 09:57:45 OPV 1 completed Not Available [facility] 03/30/2023 09:57:45 Hep B, adolescent or pediatric 7 completed Not Available [facility] 03/30/2023 09:57:45 DTP 2 completed Not Available [facility] 03/30/2023 09:57:45 Hep B, adolescent or pediatric 7 completed Not Available [facility] 03/30/2023 09:57:45 DTP 1 completed Not Available formerly [facility] 03/30/2023 09:57:45 MMR 1 completed Not Available formerly [facility] 03/30/2023 09:57:45 Influenza, high-dose, trivalent, PF 0 completed Not Available formerly [facility] 03/30/2023 09:57:45 Tdap 3 completed Not Available formerly [facility] 03/30/2023 09:57:45 Influenza, split virus, quadrivalent, preservative 7 completed Not Available formerly [facility] 06/28/2019 02:34:47 Influenza, split virus, quadrivalent, preservative 9 completed Not Available formerly [facility] 06/28/2019 02:37:00 Influenza, split virus, quadrivalent, preservative 1 completed MEIR [place], [place] [facility] 07/23/2020 16:38:34 Influenza, split virus, trivalent, preservative 4 completed Not Available formerly [facility] 06/28/2019 02:32:02 Tdap 4 completed Not Available formerly [facility] 06/28/2019 02:39:15 Influenza, split virus, quadrivalent, PF 1 completed Jalyn salas [place] - [facility] 05/10/2021 11:57:19 COVID-19, mRNA, LNP-S, PF, 30 mcg/0.3 mL dose 1 completed Jalyn salas [place] [facility] 05/10/2021 12:08:00 Influenza, split virus, quadrivalent, preservative 6 completed Not Available formerly [facility] 03/30/2023 09:57:45 Influenza, split virus, trivalent, preservative 4 completed MEIR [place] [facility] 02/28/2024 14:51:07 Past Encounters Encounter ID Performer Location Encounter Start Date Encounter Closed Date Diagnosis/Indication Diagnosis SNOMED-CT Code Diagnosis ICD10 Code [id number] Tanya Roberts RN [facility] (Adult Med) [address] [place] [address] 05/12/2014 10:37:18 05/12/2014 14:28:04 [id number] Opal Cuellar MA [facility] (Adult Med) [address] [facility] [place] [address] 05/20/2014 13:48:18 05/20/2014 15:14:18 Generalized anxiety disorder 91812805 Overweight 789428225 Needs infl uenza immunization 053966487 Administra tion of tetanus vaccine 583851237 Hyperlipid emia screening 401846472 Diabetes m ellitus screening 588314290 [id number] [facility] (Adult Med) [address] [facility] [place] [address] 12/22/2014 15:30:59 12/22/2014 17:58:15 Generalized anxiety disorder 92933887 Obesity 443546222 Adult heal th examination 980889129 [id number] [facility] (Adult Med[facility] [address] [facility] [place] [address] 04/24/2016 10:07:23 04/24/2016 13:11:17 Dyspareunia 85748525 N94.19 Generalize d anxiety disorder 45043564 F41.1 Weight gain 2881819 R63. 5 [id number] JERMAN Blakely (Adult Med) [address] [facility] [place] [address] 05/16/2016 15:51:58 05/17/2016 09:51:07 Dizziness 182967441 R42 [id number] [facility] (Adult Med) [address] [facility] [place] [address] 05/22/2016 10:44:29 05/22/2016 14:13:16 Benign paroxysmal positional vertigo 346478205 H81.10 Generalize d anxiety disorder 81513527 F41.1 [id number] JERMAN Blakely (Adult Med) [address] [facility] [place] [address] 07/12/2016 10:04:32 07/14/2016 11:07:07 Benign paroxysmal positional vertigo 640197347 H81.10 Anxiety 31571012 F41.9 Dyspareunia 46445055 N94 .19 [id number] JERMAN Blakely (Adult Med) [address] [place] [address] 10/25/2016 10:35:42 10/25/2016 15:44:42 Generalized anxiety disorder 17718683 F41.1 Dyspareunia 68893056 N94 .19 Body mass index 25-29 - overweight 484219529 Z68.27 [id number] JERMAN Blakely (Adult Med) [address] [place] [address] 04/30/2017 10:35:02 05/02/2017 11:12:30 Generalized anxiety disorder 08233584 F41.1 Administra tion of influenza vaccine 53924312 Z23 Body mass index 25-29 - overweight 275939440 Z68.27 Dyspareunia 22196126 N94 .10 [id number] JERMAN Blakely (Adult Med) [address] [place] [address] 05/15/2017 10:00:23 05/15/2017 18:14:55 Increased frequency of urination 020304426 R35.0 [id number] JERMAN Blakely (Adult Med) [address] [place] [address] 11/12/2017 08:42:28 11/12/2017 10:03:45 Generalized anxiety disorder 65090390 F41.1 [id number] JERMAN Blakely (Adult Med) [address] [place] [address] 02/06/2018 09:16:37 02/06/2018 17:41:59 Acute sinusitis 75719274 J01.90 [id number] JERMAN Blakely (Adult Med) [address] [facility] [place] [address] 05/08/2018 11:57:44 05/09/2018 12:26:36 Dysuria-frequency syndrome 9559968 R30.0 Abnormal v aginal bleeding 263531014 N93.9 [id number] Tova Young, RMA [facility] (Adult Med) [address] [place] [address] 06/18/2018 10:27:41 06/18/2018 12:31:44 Generalized anxiety disorder 34689183 F41.1 Influenza vaccine needed 4909225523 106 Z23 Body mass index 30+ - obesity 391580466 Z68.30 Abnormal v aginal bleeding 423622527 N93.9 Infection due to resistant organism 443332592 Z16.20 [id number] Fernanda Robles PA-C [facility] (Adult Med) [address] [facility] [place] [address] 12/16/2018 10:47:05 01/03/2019 09:02:10 Adult health examination 177910246 Z00.00 Cholesterol screening 27 0177165 Z13.220 Generalize d anxiety disorder 94109769 F41.1 Body mass index 30+ - obesity 818004202 Z68.30 [id number] [facility] ([facility] [address] [facility] [place] [address] 06/18/2019 10:43:09 06/19/2019 10:00:02 Gynecologic examination 70438150 Z01.601 [id number] Laila Goss APN, FNP-C [facility] (Adult Med) [address] [facility] [place] [address] 07/09/2019 10:20:51 07/10/2019 08:01:19 Adult health examination 552962378 Z00.01 Vitamin D deficiency 347 31761 E55.9 Body mass index 30+ - obesity 943069571 Z68.31 Generalize d anxiety disorder 17555476 F41.1 [id number] Laila Goss APN, FNP-C [facility] (Adult Med) [address] [facility] [place] [address] 12/22/2019 08:14:00 12/23/2019 13:39:35 Generalized anxiety disorder 22434590 F41.1 Overweight 154320860 E66 .3 Mixed hyperlipidemia 267 831493 E78.2 Vitamin D deficiency 347 23362 E55.9 [id number] Laila Goss APN, FNP-C [facility] (Adult Med) [address] [facility] [place] [address] 07/01/2020 08:46:30 07/02/2020 12:35:02 Generalized anxiety disorder 31457689 F41.1 Overweight 402736559 E66 .3 Mixed hyperlipidemia 267 421331 E78.2 Vitamin D deficiency 347 85572 E55.9 [id number] Laila Goss APN, STITCHER [employer]-C [facility] (Adult Med) [address] [place] [address] 07/16/2020 09:52:46 07/21/2020 09:27:51 Dysuria 16229673 R30.9 [id number] MEIR Sweet [facility] (Adult Med) [address] [facility] [place] [address] 07/23/2020 10:33:12 07/26/2020 15:21:39 Administration of influenza vaccine 83652466 Z23 [id number] Laila Goss APN, FNP-C [facility] (Adult Med) [address] [place] [address] 01/19/2021 10:33:43 01/20/2021 11:56:47 Mixed hyperlipidemia 251212184 E78.2 Vitamin D deficiency 347 13882 E55.9 Overweight 104025887 E66 .3 Generalize d anxiety disorder 05794350 F41.1 Adult heal th examination 759354109 Z00.01 Body mass index 30+ - obesity 851153719 Z68.31 [id number] Tri Thompson [facility] ([facility]) [address] [place] [address] 01/25/2021 09:43:55 01/26/2021 22:19:54 Gynecologic examination 29839153 Z01.419 Screening for malignant neoplasm of breast 629270215 Z12.39 [id number] Laila Goss APN, FNP-Klever [facility] (Adult Med) [address] [facility] [place] [address] 05/10/2021 10:37:28 05/10/2021 15:21:51 Paresthesia of upper limb 34957194 R20.2 Mixed hyperlipidemia 267 149066 E78.2 Overweight 376961550 E66 .3 Vitamin D deficiency 347 54847 E55.9 Administra tion of influenza vaccine 01818181 Z23 [id number] [facility] [address] [facility] [place] [address] 05/10/2021 11:55:53 05/10/2021 13:46:02 Administration of SARS-CoV-2 antigen vaccine 398413122 Z23 [id number] Laila Goss APN, FNP-C [facility] (Adult Med) [address] [place] [address] 07/19/2021 10:09:40 07/20/2021 08:10:47 Generalized anxiety disorder 09688709 F41.1 Mixed hyperlipidemia 267 720402 E78.2 Vitamin D deficiency 347 02839 E55.9 Overweight 958614307 E66 .3 Liver enzy mes level above reference range 562170672 R74.01 Edema of l ower extremity 233857887 R60.0 [id number] Laila Goss APN, FNP-C [facility] (Adult Med) [address] [place] [address] 02/07/2022 15:27:19 02/08/2022 10:19:21 Generalized anxiety disorder 57932150 F41.1 Mixed hyperlipidemia 267 665053 E78.2 Vitamin D deficiency 347 18969 E55.9 Overweight 951684064 E66 .3 Liver enzy mes level above reference range 797438633 R74.01 Edema of l ower extremity 923628724 R60.0 Endocrine/ metabolic screening 081454729 Z13.677 [id number] Laila Goss APN, FNP-C [facility] (Adult Med) [address] [place] [address] 05/09/2022 12:11:45 05/10/2022 09:08:49 Sore throat 083352211 J02.9 Post-acute COVID-19 1119 507378 U09.9 Obesity 074892164 E66.9 Acute otitis media 54899 03 H65.03 [id number] MD Nivia [facility] ([facility]) [address] [place] [address] 06/28/2022 09:11:48 06/29/2022 16:45:46 Dysuria 60887312 R30.0 Vaginal irritation 03001 6004 N89.8 Microscopic hematuria 19 3698002 R31.29 Elevated blood-pressure reading without diagnosis of hypertension 987837730 R03.0 [id number] Laila Goss APN, FNP-C [facility] (Adult Med) [address] [place] [address] 08/21/2022 10:03:49 08/24/2022 17:20:15 Generalized anxiety disorder 40206949 F41.1 Mixed hyperlipidemia 267 158525 E78.2 Vitamin D deficiency 347 27399 E55.9 Liver enzy mes level above reference range 700769352 R74.01 Endocrine/ metabolic screening 892266271 Z13.228 Obesity 694554837 E66.9 Unintentio nal weight gain 9714245768 73095 R63.5 [id number] Laila Goss APN, FNP-C [facility] (Adult Med) [address] [place] [address] 10/09/2022 15:58:04 10/11/2022 14:03:25 Obesity 802995161 E66.9 Generalize d anxiety disorder 53988875 F41.1 Vitamin D deficiency 347 01360 E55.9 [id number] Laila Goss APN, FNP-C [facility] (Adult Med) [address] [place] [address] 12/11/2022 11:07:42 12/13/2022 11:38:15 Obesity 089817127 E66.9 Generalize d anxiety disorder 90484717 F41.1 Vitamin D deficiency 347 53018 E55.9 [id number] Laila Goss APN, FNP-C [facility] (Adult Med) [address] [place] [address] 02/22/2023 10:13:27 02/26/2023 11:37:17 Obesity 256050955 E66.9 Vitamin D deficiency 347 30163 E55.9 [id number] Laila Goss APN [employer] [facility] (Adult Med) [address] [place] [address] 05/24/2023 10:38:37 05/29/2023 12:59:23 Generalized anxiety disorder 65038166 F41.1 Obesity 810837724 E66.9 Mixed hyperlipidemia 267 305177 E78.2 Acute sinusitis 11571734 J01.90 [id number] Laila Goss APN, [employer]ER [employer] [facility] (Adult Med) [address] [place] [address] 08/27/2023 10:21:34 08/30/2023 12:15:45 Generalized anxiety disorder 46959038 F41.1 Obesity 188387096 E66.9 Mixed hyperlipidemia 267 883346 E78.2 [id number] Laila Goss APN, STITCHER [employer] [facility] (Adult Med) [address] [facility] [place] [address] 11/27/2023 10:26:47 11/30/2023 15:17:34 Generalized anxiety disorder 24411388 F41.1 Obesity 221900860 E66.9 Mixed hyperlipidemia 267 940340 E78.2 Adult heal th examination 385581013 Z00.01 [id number] Laila Goss APN, FNP-C [facility] (Adult Med) [address] [place] [address] 02/28/2024 10:36:54 03/05/2024 11:05:46 Generalized anxiety disorder 31344614 F41.1 Obesity 768093176 E66.9 Mixed hyperlipidemia 267 021187 E78.2 Administra tion of influenza vaccine 16487312 Z23 [id number] Laila Goss APN [employer] [facility] (Adult Med) [address] [place] [address] 06/02/2024 10:13:08 06/03/2024 15:52:22 Upper respiratory infection 22839830 J06.9 Obesity 703468956 E66.9 Generalize d anxiety disorder 27179530 F41.1 Vitamin D deficiency 347 68585 E55.9 Health Concerns Section Related Observation LastModified by Organization Detai ls LastModified Time None Recorded Concern Status LastModified by Organization Details LastModified Time None Recorded Advance Directives Directive N: Payers Encounter Date Sequence Insurance Name Policy Number Policy Jim Covered Member ID Jim Member ID Guarantor Name 05/24/2023 1 [facility] (MEDICAID HMO) [id number] Debo Quevedo [id number] Debo Quevedo 08/27/2023 1 [facility] (MEDICAID HMO) [id number] Debo Guerraann [id number] Debo Quevedo 11/27/2023 1 [facility] (MEDICAID HMO) [id number] Debo Quevedo [id number] Debo Quevedo 02/28/2024 1 [facility] (MEDICAID HMO) [id number] Debo Quevedo [id number] Debo Quevedo 06/02/2024 1 [facility] (MEDICAID HMO) [id number] Debohuan Quevedo [id number] Debo Quevedo Notes Date Note Type Note Provider Name and Address Organization Details Recorded Time 05/24/2023 text/html sinus infection for about a month, sinus [place] and nose is bothering her. she has been taking her allergy, and otc sudafed, advil, and motrin. Wants to discuss having phentermine refilled no Si or HI or SH, no side effects of meds, sleep good weight lo08/21/22: : : : : 218 hx:concerns for weight gain,no new changestried low carb and it gave her bad diarrhea, right now is watching portions and walking, Laila Goss APN, FNP-C Attn: Accounting[address] [place], [address], [facility] 05/28/2023 17:25:43 08/27/2023 text/html no Si or HI or S H, no side effects of meds, sleep good weight lo08/21/22: : : : : : 219 hx:concerns for weight gain, no new changes, phentermine not helpingtried low carb and it gave her bad diarrhea, right now is watching portions and walking, Laila Goss APN, FNP-C Attn: Accounting[address] [place], [address], [facility] 08/29/2023 18:11:34 11/27/2023 text/html no Si or HI or S H, no side effects of meds, sleep good weight lo08/21/22: : : : : : : 220 hx:concerns for weight gain, no new changes, phentermine not helpingtried low carb and it gave her bad diarrhea, right now is watching portions and walking Laila Goss APN, FNP-C Attn: Accounting[address] [place], [address], [facility] 11/27/2023 11:02:44 02/28/2024 text/html no Si or HI or S H, no side effects of meds, sleep goodwould like new option for weight loss help weight lo08/21/22: : : : : : : : 89 hx:concerns for weight gain, no new changes,tried low carb and it gave her bad diarrhea, right now is watching portions and walking Laila Goss APN, FNP-C Attn: Accounting[address] [place], [address], [facility] 02/28/2024 11:29:37 06/02/2024 text/html runny nose, sore throat, headache, wet cough for over a week. taking otc sudafed, mucinex, allergy med, zyrtec, advil, aleve, benadryl. no Si or HI or SH, no side effects of meds, sleep good weight lo08/21/22: : : : : : : 89, hx:concerns for weight gain, no new changes, phentermine not helpingtried low carb and it gave her bad diarrhea, right now is watching portions and walking, Laila Goss, SUPERVISOR MENDING, STITCHER HAND-C Attn: Accounting[address] , [place], [address], [facility] 06/02/2024 11:07:46 OBGyn Episode Ob Episode Information Episode Created Date Number of Fetuses Patient Bloodtype Patient rh Status Prepregnancy Weight lbs Domestic Partner Domestic Partner Phone Father Name Seam Stayer Status 06/18/19 1 CLOSED Fetus Data First Name Last Name Admitted to NICU Weight (g) Sex Living Outcome Pediatric Complications Fetus ID Race Codes Race Delivery Type F Full Term [id number] Vaginal Young Calculation YOUNG Calculation Method Initial Young Date Initial Exam Date Initial Exam Provider Initial Ultrasound Date Last Menstrual Period Date Ultra Sound Weeks Gestation Conception by IVF Embryo Age at Transfer Date of Transfer 0 Eighteen To Twenty Week Young Update Ultra Sound Date Fundal Height At Umbil Quickening Date Ultra Sound Latest Weeks Gestation Final Young Confirmed By Final Young Confirmed Date Final Young Date Ultra Sound Latest Days Gestation 0 0 Menstrual History Last Menstrual Date Menses Monthly On Bcp Conception Prior Menses Frequency Hcg Plus Date Menarche Onset Age Delivery Information Delivery Date Delivery Type Labor Anesthesia Weeks Gestation Incision Type Labor Labor Length Hrs Delivered By Post Complications Tubal Sterilization Discharge Date Comments 3 Discharge Information Feeding Method Contraceptive Method Maternal HG B and HCT Levels Ob Episode Information Episode Created Date Number of Fetuses Patient Bloodtype Patient rh Status Prepregnancy Weight lbs Domestic Partner Domestic Partner Phone Father Name Seam Stayer Status 06/18/19 1 CLOSED Fetus Data First Name Last Name Admitted to NICU Weight (g) Sex Living Outcome Pediatric Complications Fetus ID Race Codes Race Delivery Type F Full Term [id number] Vaginal Young Calculation YOUNG Calculation Method Initial Young Date Initial Exam Date Initial Exam Provider Initial Ultrasound Date Last Menstrual Period Date Ultra Sound Weeks Gestation Conception by IVF Embryo Age at Transfer Date of Transfer 0 Eighteen To Twenty Week Young Update Ultra Sound Date Fundal Height At Umbil Quickening Date Ultra Sound Latest Weeks Gestation Final Young Confirmed By Final Young Confirmed Date Final Young Date Ultra Sound Latest Days Gestation 0 0 Menstrual History Last Menstrual Date Menses Monthly On Bcp Conception Prior Menses Frequency Hcg Plus Date Menarche Onset Age Delivery Information Delivery Date Delivery Type Labor Anesthesia Weeks Gestation Incision Type Labor Labor Length Hrs Delivered By Post Complications Tubal Sterilization Discharge Date Comments 7 Discharge Information Feeding Method Contraceptive Method Maternal HG B and HCT Levels Ob Episode Information Episode Created Date Number of Fetuses Patient Bloodtype Patient rh Status Prepregnancy Weight lbs Domestic Partner Domestic Partner Phone Father Name Seam Stayer Status 06/18/19 20 1 CLOSED Fetus Data First Name Last Name Admitted to NICU Weight (g) Sex Living Outcome Pediatric Complications Fetus ID Race Codes Race Delivery Type F Full Term [id number] Vaginal Young Calculation YOUNG Calculation Method Initial Young Date Initial Exam Date Initial Exam Provider Initial Ultrasound Date Last Menstrual Period Date Ultra Sound Weeks Gestation Conception by IVF Embryo Age at Transfer Date of Transfer 0 Eighteen To Twenty Week Young Update Ultra Sound Date Fundal Height At Umbil Quickening Date Ultra Sound Latest Weeks Gestation Final Young Confirmed By Final Young Confirmed Date Final Young Date Ultra Sound Latest Days Gestation 0 0 Menstrual History Last Menstrual Date Menses Monthly On Bcp Conception Prior Menses Frequency Hcg Plus Date Menarche Onset Age Delivery Information Delivery Date Delivery Type Labor Anesthesia Weeks Gestation Incision Type Labor Labor Length Hrs Delivered By Post Complications Tubal Sterilization Discharge Date Comments 1 Discharge Information Feeding Method Contraceptive Method Maternal HG B and HCT Levels
--- OUTSIDE RECORDS SUMMARY | 2024-06-08 15:49 | XMS_ITS | Encounter Summary ---
Author Organization [facility] Address [address] [place] [address] Phone Care Team Providers Care Operations Architect Name Role Phone Bernardo Aragon MD Primary Care Provider + Reason for Visit * Reason Comments Annual Exam Encounter Details Date Type Department Care Team (Late st Contact Info) Description 01/18/2018 10:00 AM CDT Office Visit [facility] [address] [place] [address] Yeimy Delgado MD [address] [place] [address] Encounter for gynecological examination without abnormal finding (Primary Dx) Social History Tobacco Use Types Packs/Day Years Used Date Smoking Tobacco: Never Smokeless Tobacco: Never Alcohol Use Standard Drinks/Week Comments Yes 0 (1 standard drink = 0.6 oz pur e alcohol) Comments No Sex and Gender Information Value Date Recorded Sex Assigned at Not on file Legal Sex Female 1:15 PM SP[employer]ER [employer] Gender Identity Not on file Sexual Orientation Not on file 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 Not on file Not on file Not on file documented as of this encounter Last Filed Vital Signs Vital Sign Reading Time Taken Comments Blood Pressure 110/88 01/18/2018 9:52 AM CDT Pulse - - Temperature - - Respiratory Rate - - Oxygen Saturation - - Inhaled Oxygen Concentration - - Weight 86.6 kg (191 lb) 01/18/2018 9:52 AM CDT Height 171.5 cm (5' 7.5 ) 01/18/2018 9:52 AM CDT Body Mass Index 29.47 01/18/2018 9:52 AM CDT documented in this encounter Progress Notes * Yeimy Delgado MD - 01/18/2018 10:00 AM CDT Well Woman Exam Subjective: Debo Quevedo is a 37 y.o. who presents for annual tax compliance officer exam. Last Pap 01/13/16 was NILM, HR HPV(-). Denies history of abnormal. ?? Menses are regular, q monthly. No menorrhagia or dysmenorrhea. She is s/p tubal ligation. She had been followed at [facility] vulvar clinic for vaginismus. She was able to discontinue medication and denies recurrent symptoms other than vaginal dryness with intercourse, which is relieved with lubricants. Menstrual History: Patient's last menstrual period was 01/16/2018. Sexual History: OB History Para Term AB Living 3 3 3 0 0 3 SAB TAB Ectopic Multiple Live Births # Outcome Date GA Labor/2nd Weight Sex Delivery Anes PTL Living Name Location Delivering Clinician 1 Term 2 Term 3 Term Past Medical History: Diagnosis Date ??? Vaginismus 2013 [facility] Vulvar clinic - gabapentin, amitriptyline Current Outpatient Prescriptions: ??? fexofenadine (BENITO) 180 mg tablet, Take 180 mg by mouth daily., Disp: , Rfl: ??? venlafaxine 225 mg tablet extended release 24hr 24 hr tablet, Take 225 mg by mouth daily., Disp: , Rfl: No Known Allergies Family History Problem Relation Age of Onset ??? Migraines Brother Migraines; ??? Breast cancer Paternal Grandmother Cancer, breast; ??? Breast cancer Father's Sister Cancer, breast; Social History Social History ??? Marital status: Spouse name: Dung ??? Number of children: 3 ??? 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 Social History Main Topics ??? Smoking status: Never Smoker ??? Smokeless tobacco: Never Used ??? Alcohol use Yes ??? Drug use: No ??? Sexual activity: Yes Partners: Male control/ protection: Tubal Ligation Other Topics Concern ??? None Social History Narrative ??? None Review of Systems Constitutional: Negative for fatigue, fever and unexpected weight change. Respiratory: Negative for shortness of breath and wheezing. Cardiovascular: Negative for chest pain and palpitations. Gastrointestinal: Negative for abdominal pain, blood in stool, nausea and vomiting. Genitourinary: Negative for dysuria, frequency, hematuria, urgency, vaginal bleeding and vaginal discharge. Skin: Negative for rash. Objective: BP 110/88 Ht 171.5 cm (5' 7.5 ) Wt 191 lb (86.6 kg) LMP 01/16/2018 BMI 29.47 kg/m?? Physical Exam Constitutional: She is oriented to person, place, and time. She appears well- developed and well-nourished. Genitourinary: Vagina normal and uterus normal. Right labia: normal. Left Labia: normal. No vaginal discharge found. Right adnexa normal. Left adnexa normal. Cervix: Normal exam. Cardiovascular: Normal rate and regular rhythm. Pulmonary/Chest: Effort normal and breath sounds normal. Right breast exhibits no mass. Left breastexhibits no mass. Abdominal: Soft. There is no tenderness. Musculoskeletal: She exhibits no edema or tenderness. Neurological: She is alert and oriented to person, place, and time. Skin: Skin is warm and dry. Psychiatric: She has a normal mood and affect. Her behavior is normal. Assessment and Plan: Debo Quevedo is a 37 y.o. female who presents for a well woman exam. 1. Encounter for gynecological examination without abnormal finding Pap due for repeat by 2020. Return for annual or PRN. Recommended screenings and preventive care discussed: Pap smear: Not Indicated Diet and exercise discussed. Contraception reviewed. . Yeimy Delgado MD 01/18/2018 documented in this encounter Plan of Treatment Not on file documented as of this encounter Visit Diagnoses Diagnosis Encounter for gynecological examination without abnormal finding- Primary documented in this encounter Discontinued Medications Medication Sig Discontinue Reason Start Date End Da te cetirizine (ZyrTEC) 10 mg capsule 10 mg. 10/17/2011 01/18/2018 acetaminophen (TYLENOL) 325 mg tablet 325 mg. 02/06/2012 01/18/2018 documented as of this encounter Historical Medications * This list may reflect changes made after this encounter. fexofenadine (BENITO) 180 mg tablet Take 180 mg by mouth daily. added in this encounter Care Teams Operations Architect Relationship Specialty Start Date End Date Bernardo Aragon MD [address] [place] [id number] PCP - General 07/22/10 03/19/23 documented as of this encounter
--- OUTSIDE RECORDS SUMMARY | 2024-06-08 15:49 | XMS_ITS | Encounter Summary ---
Author Organization [facility] Address [address] [place] [address] Phone Care Team Providers Care Lift Manager Name Role Phone Bernardo Aragon MD Primary Care Provider + Reason for Visit * Reason Comments Annual Exam Encounter Details Date Type Department Care Team (Late st Contact Info) Description 01/12/2017 9:30 AM CDT Office Visit [facility] [address] [place] [address] Yeimy Delgado MD [address] [place] [address] Routine gynecological examination (Primary Dx) Social History Tobacco Use Types Packs/Day Years Used Date Smoking Tobacco: Never Smokeless Tobacco: Never Alcohol Use Standard Drinks/Week Comments Yes 0 (1 standard drink = 0.6 oz pur e alcohol) Comments No Sex and Gender Information Value Date Recorded Sex Assigned at Not on file Legal Sex Female 1:15 PM HYDRAULIC JACK MECHANIC Gender Identity Not on file Sexual Orientation Not on file 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 year old who presents for annual size tester exam. Last Pap 01/13/16 was NILM, HR HPV (-). Denies history of abnormal. Menses are regular, q monthly. No menorrhagia or dysmenorrhea. She is s/p tubal ligation. 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 Last visit 6 months and and able to discontinue gabapentin and amitriptyline. Denies recurrent symptoms. Since medications stopped, she also has lost over 10 lbs. Has increased physical activity as well. Menstrual History: Patient's last menstrual period was 12/26/2016 (exact date). Sexual History: OB History Para Term AB Living 3 3 3 0 0 3 SAB TAB Ectopic Multiple Live Births # Outcome Date GA Labor/2nd Weight Sex Delivery Anes PTL Living Name Location Delivering Clinician 1 Term 2 Term 3 Term Past Medical History: Diagnosis Date ??? Vaginismus 2013 [facility] Vulvar clinic - gabapentin, amitriptyline Current Outpatient Prescriptions: ??? acetaminophen (TYLENOL) 325 mg tablet, 325 mg., Disp: , Rfl: 0 ??? cetirizine (ZyrTEC) 10 mg capsule, 10 mg., Disp: , Rfl: 0 ??? 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 Smoking status: [...] discharge. Skin: Negative for rash. Objective: BP 110/68 Ht 171.5 cm (5' 7.5 ) Wt 78 kg (172 lb) LMP 12/26/2016 (Exact Date) ? No BMI 26.54 kg/m?? Physical Exam Constitutional: She is oriented [...] Her behavior is normal. Assessment and Plan: Max Quevedo is a 36 y.o. female who presents for a well woman exam. 1. Routine gynecological examination Pap due for repeat by 2020. Return for annual or PRN. Recommended screenings and preventive care discussed: Pap smear: Not Indicated Diet and exercise discussed. Contraception reviewed. Yeimy Delgado MD 01/12/2017 documented in this encounter Plan of Treatment Not on file documented as of this encounter Visit Diagnoses Diagnosis Routine gynecological examination- Primary documented in this encounter Discontinued Medications Medication Sig Discontinue Reason Start Date End Da te gabapentin (NEURONTIN) 100 mg capsule take 1 capsule by oral route 3 times every day 12/17/2014 01/12/2017 amitriptyline (ELAVIL) 10 mg tablet take 2 tablet by oral route every day 11/17/2013 01/12/2017 documented as of this encounter Historical Medications * This list may reflect changes made after this encounter. venlafaxine 225 mg tablet extended release 24hr 24 hr tablet Take 225 mg by mouth daily. added in this encounter Care Teams Lift Manager Relationship Specialty Start Date End Date Bernardo Aragon MD [address] [place] [id number] PCP - General 07/22/10 03/19/23 documented as of this encounter
--- OUTSIDE RECORDS SUMMARY | 2024-06-08 15:49 | XMS_ITS | Encounter Summary ---
Author Organization [facility] Address [address] [place] [id number] Care Team Providers Care Paper Counter Name Role Phone Unavailable Primary Care Provider Unavailabl e Encounter Details Date Type Department Care Team (Late st Contact Info) Description 05/23/2020 9:00 AM WELDER BOILERMAKER Rapid Evaluation [place] [facility] Community Testing [address] [address] Social History Tobacco Use Types Packs/Day Years [...]
--- OUTSIDE RECORDS SUMMARY | 2024-06-08 15:49 | XMS_ITS | Encounter Summary ---
Author Organization [facility] Address [address] [place] [address] Phone Care Team Providers Care Returned Item Clerk Name Role Phone Laila Danielle APRN, CNP Primary Care Provider [phone] Raghav Blanco DPLela Unavailable Unavailable Encounter Details Date Type Department Care Team (Late st Contact Info) Description 05/31/2022 Telephone [facility]note 3[facility] - Podiatry [facility] [address] [place] [address] Raghav Blanco, DPM Social History Tobacco Use Types Packs/Day Years [...] Coronavirus/COVID-19? No / Unsure 05/31/2022 1:04 PM HOTEL FRONT OFFICE MANAGER documented as of this encounter Miscellaneous Notes * Telephone Encounter - Ruby Silva - 05/31/2022 1:43 PM CST Work note L FRONT OFFICE MANAGER documented in this encounter Plan of Treatment Not on file documented as of this encounter Visit Diagnoses Not on filedocumented in this encounter Care Teams Returned Item Clerk Relationship Specialty Start Date End Date Laila Danielle APRN, CNP [address] [place] [address] PCP - General Family Medicine 05/30/22 Raghav Blanco DPM Podiatry 05/31/22 documented as of this encounter
--- OUTSIDE RECORDS SUMMARY | 2024-06-08 15:49 | XMS_ITS | Encounter Summary ---
Author Organization [facility] Address [address] [place] [address] Phone Care Team Providers Care Boarder Steam Name Role Phone Danielle, Lailazaira STEELE CNP Primary Care Provider [phone] Raghav Blanco DPM Unavailable Unavailable Encounter Details Date Type Department Care Team (Latest Contact Info) Description 07/18/2022 3:15 PM [facility] - 07/18/2022 11:59 PM [facility] Hospital Encounter [facility] [address] [place] [address] Provider, Not On File [place] Discharge Disposition: Discharged to home or Selfcare [...] Coronavirus/COVID-19? No / Unsure 07/12/2022 9:12 AM [facility] documented as of this encounter Medications at Time of Discharge meloxicam (MOBIC) 15 MG Tablet Take 1 Tablet by mouth daily. 30 Tablet 2 06/14/2022 venlafaxine (EFFEXOR-XR) 150 MG CAPSULE SR 24 HR Take 150 mg by mouth daily. 03/29/2022 venlafaxine (EFFEXOR-XR) 75 MG CAPSULE SR 24 HR Take 75 mg by mouth daily. 05/14/2022 documented as of this encounter Plan of Treatment Not on file documented as of this encounter Procedures Procedure Name Priority Date/Time Associated Diagnosis Comments XR REFERENCE IMAGES FOR IMAGE IMPORT Routine 07/18/2022 3:17 PM [facility] XR REFERENCE IMAGES FOR IMAGE IMPORT Routine 07/18/2022 3:15 PM [facility] documented in this encounter Results * XR REFERENCE IMAGES FOR IMAGE IMPORT (07/18/2022 3:17 PM [facility]) Only the most recent of2 resultswithin the time period is included. us Not On File Provider IMG DIAGNOSTIC ORDERABLES F inal Result documented in this encounter Visit Diagnoses Not on filedocumented in this encounter Care Teams Boarder Steam Relationship Specialty Start Date End Date Shashi, CEDRIC [place], [place] [address] [place] [address] PCP - General Family Medicine 05/30/22 Raghav Blanco DPM Podiatry 05/31/22 documented as of this encounter
--- OUTSIDE RECORDS SUMMARY | 2024-06-08 15:49 | XMS_ITS | Encounter Summary ---
Author Organization [facility] Address [address] [place] [address] Phone Care Team Providers Care Asphalt Machine Operator Name Role Phone Laila Danielle APRN, CNP Primary Care Provider +1 [phone] Raghav Blanco DPM Unavailable Unavailable Reason for Visit * Reason Comments Foot Injury * Consult, Test & Initiate Treatment (Routine) - Closed Specialty Diagnoses / Procedures Referred By Contdior t Referred To Contact Diagnoses Strain of unspecified muscle and tendon at ankle and foot level, left foot, initial encounter Laila Danielle APRN, CNP [address] [place] [address] Phone: tel: fax: Raghav Blanco DPM Referral ID Status Reason Start Date Expiration Date Visits Re quested Visits Authorized [id number] Closed 1 1 Encounter Details Date Type Department Care Team (Late st Contact Info) Description 05/31/2022 1:15 PM STITCH BONDING MACHINE DRAWER IN Office Visit [facility] [address] [place] [address] Raghav Blanco DPM Contusion of dorsum of foot (Primary Dx) Discharge Disposition: Discharged to home [...] Coronavirus/COVID-19? No / Unsure 05/31/2022 1:04 PM STITCH BONDING MACHINE DRAWER IN documented as of this encounter Last Filed Vital Signs Vital Sign Reading Time Taken Comments Blood Pressure 122/72 05/31/2022 1:11 PM STITCH BONDING MACHINE DRAWER IN Pulse 115 05/31/2022 1:11 PM STITCH BONDING MACHINE DRAWER IN Temperature 36.4 ??C (97.5 ??F) 05/31/2022 1:11 PM CS T Respiratory Rate 18 05/31/2022 1:11 PM STITCH BONDING MACHINE DRAWER IN Oxygen Saturation 98% 05/31/2022 1:11 PM STITCH BONDING MACHINE DRAWER IN Inhaled Oxygen Concentration - - Weight 98.9 kg (218 lb) 05/31/2022 1:11 PM STITCH BONDING MACHINE DRAWER IN Height 172.7 cm (5' 8 ) 05/31/2022 1:11 PM STITCH BONDING MACHINE DRAWER IN Body Mass Index 33.15 05/31/2022 1:11 PM STITCH BONDING MACHINE DRAWER IN documented in this encounter Progress Notes * Raghav Blanco DPM - 05/31/2022 1:15 PM CST [facility] [address] [facility], [address] [place] [address] 05/31/2022 Patient: Debo Quevedo : 1980 Subjective: Debo ptc for sprain of her left ankle. Last Sunday she fell and had xrays taken showing no fractures. No Known Allergies Current Outpatient Medications: ??? venlafaxine (EFFEXOR-XR) 150 MG CAPSULE SR 24 HR ??? venlafaxine (EFFEXOR-XR) 75 MG CAPSULE SR 24 HR History reviewed. No pertinent past medical history. Past Surgical History: Procedure Laterality Date ??? TUBAL LIGATION Objective: Physical Exam: Constitutional: The patient is [...] are in normal alignment. The gain is normal.POP of the lateral midfoot on the right. Dermatologic: Skin has normal texture and turgur. [...] all orders for this visit: Contusion of dorsum of foot Other orders - venlafaxine (EFFEXOR-XR) 150 MG CAPSULE SR 24 HR; Take 150 mg by mouth daily. - venlafaxine (EFFEXOR-XR) 75 MG CAPSULE SR 24 HR; Take 75 mg by mouth daily. Xrays reviewed showing no fractures or dislocations. Rx CAM boot to be worn during all ambulation. wbat with weight to right heel. Pt to rest ice elevate F/u xrays in 2 weeks. Raghav Blanco DPM CH BONDING MACHINE DRAWER IN documented in this encounter Miscellaneous Notes * Addendum Note - Anika Nagy RN - 05/31/2022 1:15 PM CSTAddended by: ANIKA NAGY on: 05/31/2022 01:48 PM Modules accepted: Orders CH BONDING MACHINE DRAWER IN documented in this encounter Plan of Treatment Not on file documented as of this encounter Results * XR ANKLE 3 OR MORE VIEWS LEFT (06/09/2022 11:33 AM STITCH BONDING MACHINE DRAWER IN) Anatomical Region Laterality Modality LOWER EXTREMITY, ankle Left Digital R adiography 06/11/2022 1:39 PM STITCH BONDING MACHINE DRAWER IN Impressions 06/11/2022 1:42 PM STITCH BONDING MACHINE DRAWER IN IMPRESSION: No acute fracture identified. Narrative 06/11/2022 1:42 PM STITCH BONDING MACHINE DRAWER IN EXAM DESCRIPTION: XR ANKLE 3 OR MORE [...] PM T: ??06/11/2022 1:39 PM Report ID: [id number] Reading Location: ??[id number] Procedure Note Pedro Castro MD - 06/11/2022 [...] Pedro Castro M.D. MF: SONJA Report ID: [id number] Reading Location: [id number] IMPRESSION: No acute fracture identified. Raghav Blanco DPM IMG DIAGNOSTIC ORDERABLES Fi nal Result * XR FOOT 3 OR MORE VIEWS LEFT (06/09/2022 11:33 AM STITCH BONDING MACHINE DRAWER IN) Anatomical Region Laterality Modality LOWER EXTREMITY, foot Left Digital Ra diography 06/11/2022 1:39 PM STITCH BONDING MACHINE DRAWER IN Impressions 06/11/2022 1:42 PM STITCH BONDING MACHINE DRAWER IN IMPRESSION: No acute fracture identified. Narrative 06/11/2022 1:42 PM STITCH BONDING MACHINE DRAWER IN EXAM DESCRIPTION: XR ANKLE 3 OR MORE [...] PM T: ??06/11/2022 1:39 PM Report ID: [id number] Reading Location: ??[id number] Procedure Note Pedro Castro MD - 06/11/2022 [...] Pedro Castro M.D. MF: SONJA Report ID: [id number] Reading Location: [id number] IMPRESSION: No acute fracture identified. Raghav Blanco DPM IMG DIAGNOSTIC ORDERABLES Fi nal Result documented in this encounter Visit Diagnoses Diagnosis Contusion of dorsum of foot- Primary Contusion of dorsum of foot documented in this encounter Care Teams Asphalt Machine Operator Relationship Specialty Start Date End Date Laila Danielle APRN, [place] [address] [place] [address] PCP - General Family Medicine 05/30/22 Raghav Blanco DPM Podiatry 05/31/22 documented as of this encounter
--- OUTSIDE RECORDS SUMMARY | 2024-06-08 15:50 | XMS_ITS | Encounter Summary ---
Author Organization [facility] Healthcare Address [address] [place] [address] Care Team Providers Care Washer Engineer Helper Name Role Phone Bernardo Aragon MD Primary Care Provider + Encounter Details Date Type Department Care Team (Late st Contact Info) Description 07/26/2010 10:37 AM NEIGHBORHOOD PLANNER - 07/28/2010 10:20 AM NEIGHBORHOOD PLANNER Hospital Encounter [facility]ande[facility] D[facility] MD [address] [place] [address] [place] [address] Normal delivery; Encounter for sterilization; Delivery outcome of single liveborn infant Social History Tobacco Use Types Packs/Day Years Used Date Smoking Tobacco: Never Assessed Comments Unknown Sex and Gender Information Value Date Recorded Sex Assigned at Not on file Legal Sex Female 1:15 PM NEIGHBORHOOD PLANNER Gender Identity Not on file Sexual Orientation Not on file documented as of this encounter Plan of Treatment Not on file documented as of this encounter Visit Diagnoses Diagnosis Normal delivery Encounter for sterilization Sterilization Delivery outcome of single liveborn documented in this encounter Care Teams Washer Engineer Helper Relationship Specialty Start Date End Date Bernardo Aragon MD [address] [place] [address] PCP - General 07/22/10 03/19/23 documented as of this encounter
--- OUTSIDE RECORDS SUMMARY | 2024-06-08 15:50 | XMS_ITS | Encounter Summary ---
Author Organization [facility] Healthcare Address [address] [place] [address] Care Team Providers Care Roast Master Name Role Phone Bernardo Aragon MD Primary Care Provider + Encounter Details Date Type Department Care Team (Late st Contact Info) Description 12/22/2013 10:40 AM CDT - 12/22/2013 11:59 PM CDT Hospital Encounter [facility] Delgado, Yeimy Buchanan MD [address] [place] [address] Urinary frequency Social History Tobacco Use Types Packs/Day Years Used Date Smoking Tobacco: Never Alcohol Use Standard Drinks/Week Comments Yes 0 (1 standard drink = 0.6 oz pur e alcohol) Comments Unknown Sex and Gender Information Value Date Recorded Sex Assigned at Not on file Legal Sex Female 1:15 PM HAND INSPECTOR Gender Identity Not on file Sexual Orientation [...] Date/Time Associated Diagnosis Comments URINE MICROBIOLOGY Routine 12/22/2013 12 :00 AM CDT documented in this encounter Results * Urine Microbiology (12/22/2013 12:00 AM CDT) 12/22/2013 Narrative HISTORICAL RESULTS - 12/24/2013 4:45 PM CDT [facility] ?Patient Name: ?ANKIT SOTO ?Med. Rec#: ?? [id number] ?Pt. Acct.#: ??[id number] ?Birthdate: ?? 1980 ?Age / Sex: ?? 33Y / F ?Location: ?[facility] ([facility] ?Admit Date: ??12/22/2013 ?Discharge Date: ? 12/22/2013 ?Doctor: ?Patient Type: ?CH Ref Lab - Insuran Culture, Urine ? Collected: 12/22/2013 10:40 Specimen: Urine ?? Specimen Source: Clean Voided Specimen Status: Final ??Last Update: 12/24/2013 10:51 Organism ?? Greater than 100,000 cfu/ml of ?? Escherichia coli ?$$'s REPRESENT ?- ?IN-PATIENT COST ? - ?- ?Ampicillin ? $$ >16 ??R ?Cefazolin ? $ <=2 ??S ?Gentamicin ?$ <=1 ??S ?Tobramycin ?$ 2 ?S ?Tetracycline ?$ >8 ?? R ?Ciprofloxacin ? $ ?S ? <=0.5 ?Nitrofurantoin ?$ <=16 S ?Trimeth/Sulfa ? $ ?R ? >2/38 ?Amoxicillin/Clav ??$ 8/4 ??S us Historical Provider LAB MICROBIOLOGY - GENERA L ORDERABLES Final Result HISTORICAL RESULTS documented in this encounter Visit Diagnoses Diagnosis Urinary frequency documented in this encounter Care Teams Roast Master Relationship Specialty Start Date End Date Bernardo Aragon MD [address] [place] [address] PCP - General 07/22/10 03/19/23 documented as of this encounter
--- OUTSIDE RECORDS SUMMARY | 2024-06-08 16:48 | XMS_ITS | Encounter Summary ---
Author Organization [facility] Address [address] [place] [address] Phone Care Team Providers Care Beam Warper Name Role Phone Bernardo Aragon MD Primary Care Provider + Reason for Visit * Reason Comments Annual Exam Encounter Details Date Type Department Care Team (Late st Contact Info) Description 01/12/2017 9:30 AM CDT Office Visit [facility] [address] [place] [address] Yeimy Delgado MD [address] [place] [address] Routine gynecological examination (Primary Dx) Social History Tobacco Use Types Packs/Day Years Used Date Smoking Tobacco: Never Smokeless Tobacco: Never Alcohol Use Standard Drinks/Week Comments Yes 0 (1 standard drink = 0.6 oz pur e alcohol) Comments No Sex and Gender Information Value Date Recorded Sex Assigned at Not on file Legal Sex Female 1:15 PM MENTAL HEALTH UNIT LEAD PSYCHOLOGIST Gender Identity Not on file Sexual Orientation Not on file 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 year old who presents for annual mortgage analyst exam. Last Pap 01/13/16 was NILM, HR HPV (-). Denies history of abnormal. Menses are regular, q monthly. No menorrhagia or dysmenorrhea. She is s/p tubal ligation. 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 Smoking [...] daily. added in this encounter Care Teams Beam Warper Relationship Specialty Start Date End Date Bernardo Aragon MD [address] [place] [address] PCP - General 07/22/10 03/19/23 documented as of this encounter
--- OUTSIDE RECORDS SUMMARY | 2024-06-08 16:48 | XMS_ITS | Encounter Summary ---
Author Organization [facility] Address [address] [place] [address] Care Team Providers Care Window Trimmer Name Role Phone Unavailable Primary Care Provider Unavailabl e Encounter Details Date Type Department Care Team (Late st Contact Info) Description 05/23/2020 9:00 AM BOARD MILL SUPERVISOR Rapid Evaluation [facility] [address] [address] Social History Tobacco Use Types Packs/Day Years [...]
--- OUTSIDE RECORDS SUMMARY | 2024-06-08 16:48 | XMS_ITS | Referral Summary ---
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
--- OUTSIDE RECORDS SUMMARY | 2024-06-08 16:48 | XMS_ITS | Clinical Summary ---
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
--- OUTSIDE RECORDS SUMMARY | 2024-06-08 16:48 | XMS_ITS | Encounter Summary ---
Author Organization [facility] Address [address] [place] [address] Phone Care Team Providers Care Taxation Economist Name Role Phone Danielle, Laila DALLAS STEELE Primary Care Provider +1 [phone] Raghav Blanco DPM Unavailable Unavailable Encounter Details Date Type Department Care Team (Latest Contact Info) Description 06/09/2022 11:00 AM DRILL HAND - 06/09/2022 11:59 PM DRILL HAND Hospital Encounter [facility] [address] [place] [id number] Raghav Blanco, DPM Discharge Disposition: Discharged to [...] Coronavirus/COVID-19? No / Unsure 06/09/2022 10:55 AM DRILL HAND documented as of this encounter Medications at [...] MORE VIEWS LEFT Routine 06/09/2022 11:33 AM DRILL HAND Contusion of dorsum of foot XR ANKLE 3 OR MORE VIEWS LEFT Routine 06/09/2022 11:33 AM DRILL HAND Contusion of dorsum of foot documented in this encounter Results * XR FOOT 3 OR MORE VIEWS LEFT (06/09/2022 11:33 AM DRILL HAND) Anatomical Region Laterality Modality LOWER EXTREMITY, foot Left Digital Ra diography 06/11/2022 1:39 PM DRILL HAND Impressions 06/11/2022 1:42 PM DRILL HAND IMPRESSION: No acute fracture identified. Narrative 06/11/2022 1:42 PM DRILL HAND EXAM DESCRIPTION: XR ANKLE 3 OR MORE [...] PM T: ??06/11/2022 1:39 PM Report ID: [id number] Reading Location: ??[id number] Procedure Note Pedro Castro MD - 06/11/2022 [...] Pedro Castro M.D. MF: SONJA Report ID: [id number] Reading Location: [id number] IMPRESSION: No acute fracture identified. Raghav Blanco DPM IMG DIAGNOSTIC ORDERABLES Fi nal Result * XR ANKLE 3 OR MORE VIEWS LEFT (06/09/2022 11:33 AM DRILL HAND) Anatomical Region Laterality Modality LOWER EXTREMITY, ankle Left Digital R adiography 06/11/2022 1:39 PM DRILL HAND Impressions 06/11/2022 1:42 PM DRILL HAND IMPRESSION: No acute fracture identified. Narrative 06/11/2022 1:42 PM DRILL HAND EXAM DESCRIPTION: XR ANKLE 3 OR MORE [...] PM T: ??06/11/2022 1:39 PM Report ID: [id number] Reading Location: ??[id number] Procedure Note Pedro Castro MD - 06/11/2022 [...] Pedro Castro M.D. MF: SONJA Report ID: [id number] Reading Location: [id number] IMPRESSION: No acute fracture identified. Raghav Blanco DPM IMPipo DIAGNOSTIC ORDERABLES Fi nal Result documented in this encounter Visit Diagnoses Diagnosis Contusion of dorsum of foot documented in this encounter Care Teams Taxation Economist Relationship Specialty Start Date End Date Laila Danielle APRN, CNP [address] [place] [address] PCP - General Family Medicine 05/30/22 Raghav Blanco DPM Podiatry 05/31/22 documented as of this encounter
--- OUTSIDE RECORDS SUMMARY | 2024-06-08 16:48 | XMS_ITS | Encounter Summary ---
Author Organization [facility] Care Team Providers Care Press Tender Incendiary Grenade Name Role Phone Laila Danielle APRN, CNP Primary Care Provider +[phone] Raghav Blanco DPM Unavailable Unavailable Encounter Details [...] Coronavirus/COVID-19? No / Unsure 05/31/2022 1:04 PM COLLECTIONS TECHNICIAN documented as of this encounter Plan of Treatment Not on file documented as of this encounter Visit Diagnoses Not on filedocumented in this encounter Care Teams Press Tender Incendiary Grenade Relationship Specialty Start Date End Date Laila Danielle APRN, CNP [address] [place] [address] PCP - General Family Medicine 05/30/22 Raghav Blanco DPM Podiatry 05/31/22 documented as of this encounter
--- OUTSIDE RECORDS SUMMARY | 2024-06-08 16:48 | XMS_ITS | Encounter Summary ---
Author Organization [facility] Address [address] [place] [address] Care Team Providers Care Landscaping Supervisor Name Role Phone Bernardo Aragon MD Primary Care Provider + Encounter Details Date Type Department Care Team (Late st Contact Info) Description 05/08/2018 Telephone [facility] [address] [place] [address] Yemiy Delgado MD [address] [place] [address] Social History Tobacco Use Types Packs/Day Years Used Date Smoking Tobacco: Never Smokeless Tobacco: Never Alcohol Use Standard Drinks/Week Comments Yes 0 (1 standard drink = 0.6 oz pur e alcohol) Comments No Sex and Gender Information Value Date Recorded Sex Assigned at Not on file Legal Sex Female 1:15 PM COMPUTER SUPPORT TECHNICIAN Gender Identity Not on file Sexual Orientation Not on file 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
--- OUTSIDE RECORDS SUMMARY | 2024-06-08 16:48 | XMS_ITS | Encounter Summary ---
Author Organization [facility] Healthcare Address [address] [place] [address] Care Team Providers Care Quality Process Auditor Name Role Phone Bernardo Aragon MD Primary Care Provider + Encounter Details Date Type Department Care Team (Late st Contact Info) Description 12/22/2013 10:40 AM CDT - 12/22/2013 11:59 PM CDT Hospital Encounter [facility] KAT[facility] Delgado, Yeimy Buchanan MD [address] [place] [address] Urinary frequency Social History Tobacco Use Types Packs/Day Years Used Date Smoking Tobacco: Never Alcohol Use Standard Drinks/Week Comments Yes 0 (1 standard drink = 0.6 oz pur e alcohol) Comments Unknown Sex and Gender Information Value Date Recorded Sex Assigned at Not on file Legal Sex Female 1:15 PM DIGITAL CONTENT MANAGER Gender Identity Not on file Sexual [...] HISTORICAL RESULTS - 12/24/2013 4:45 PM CDT [facility] ?Patient Name: ?ANKIT SOTO ?Med. Rec#: ?? [id number] ?Pt. Acct.#: ??[id number] ?Birthdate: ?? 1980 ?Age / Sex: ?? [...] frequency documented in this encounter Care Teams Quality Process Auditor Relationship Specialty Start Date End Date Bernardo Aragon MD [address] [place] [address] PCP - General 07/22/10 03/19/23 documented as of this encounter
--- OUTSIDE RECORDS SUMMARY | 2024-06-08 16:48 | XMS_ITS | Clinical Summary ---
Author Organization [facility] Address [address] [place] [address] Care Team Providers Care Telegraphic Typewriter Repairer Name Role Phone Laila Danielle APRN LINEN CLERK Primary Care Provider [phone] Raghav Blanco DPLela Unavailable Unavailable Allergies No [...] Comments Blood Pressure 118/72 07/12/2022 9:14 AM CHIEF CREDIT OFFICER Pulse 97 07/12/2022 9:14 AM CHIEF CREDIT OFFICER Temperature 36.3 ??C (97.3 ??F) 07/12/2022 9:14 AM CS T Respiratory Rate 18 07/12/2022 9:14 AM CHIEF CREDIT OFFICER Oxygen Saturation 98% 07/12/2022 9:14 AM CHIEF CREDIT OFFICER Inhaled Oxygen Concentration - - Weight 98.4 kg (217 lb) 07/12/2022 9:14 AM CHIEF CREDIT OFFICER Height 172.7 cm (5' 8 ) 07/12/2022 9:14 AM CHIEF CREDIT OFFICER Body Mass Index 32.99 07/12/2022 9:14 AM CHIEF CREDIT OFFICER Plan of Treatment Health Maintenance Due Date [...] this topic Insurance MEDICAID [place] Care Teams Telegraphic Typewriter Repairer Relationship Specialty Start Date End Date Danielle, CEDRIC Ull[place], LINEN CLERK [address] [place] [address] PCP - General Family Medicine 05/30/22 Raghav Blanco DPM Podiatry 05/31/22
--- OUTSIDE RECORDS SUMMARY | 2024-06-08 16:48 | XMS_ITS | Encounter Summary ---
Author Organization [facility] Healthcare Address [address] [place] [address] Care Team Providers Care Gusset Stitcher Name Role Phone Bernardo Aragon MD Primary Care Provider + Encounter Details Date Type Department Care Team (Late st Contact Info) Description 07/26/2010 10:37 AM BACTERIOLOGY TECHNICIAN - 07/28/2010 10:20 AM BACTERIOLOGY TECHNICIAN Hospital Encounter [facility] MD [address] [place] [address] [place] [address] Normal delivery; Encounter for sterilization; Delivery outcome of single liveborn infant Social History Tobacco Use Types Packs/Day Years Used Date Smoking Tobacco: Never Assessed Comments Unknown Sex and Gender Information Value Date Recorded Sex Assigned at Not on file Legal Sex Female 1:15 PM BACTERIOLOGY TECHNICIAN Gender Identity Not on file Sexual Orientation Not on file documented as of this encounter Plan of Treatment Not on file documented as of this encounter Visit Diagnoses Diagnosis Normal delivery Encounter for sterilization Sterilization Delivery outcome of single liveborn documented in this encounter Care Teams Gusset Stitcher Relationship Specialty Start Date End Date Bernardo Aragon MD [address] [place] [address] PCP - General 07/22/10 03/19/23 documented as of this encounter
--- OUTSIDE RECORDS SUMMARY | 2024-06-08 16:48 | XMS_ITS | Encounter Summary ---
Author Organization [facility] Address [address] [place] [address] Phone Care Team Providers Care Financial Assistance Advisor Name Role Phone Bernardo Aragon MD Primary Care Provider + Reason for Visit * Reason Comments Annual Exam Encounter Details Date Type Department Care Team (Late st Contact Info) Description 01/18/2018 10:00 AM CDT Office Visit [facility] [address] [place] [address] Yeimy Delgado MD [address] [place] [address] Encounter for gynecological examination without abnormal finding (Primary Dx) Social History Tobacco Use Types Packs/Day Years Used Date Smoking Tobacco: Never Smokeless Tobacco: Never Alcohol Use Standard Drinks/Week Comments Yes 0 (1 standard drink = 0.6 oz pur e alcohol) Comments No Sex and Gender Information Value Date Recorded Sex Assigned at Not on file Legal Sex Female 1:15 PM PAI GOW MANAGER Gender Identity Not on file Sexual Orientation Not on file 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 who presents for annual funding analyst exam. Last Pap 01/13/16 was NILM, HR HPV(-). Denies history of abnormal. ?? Menses are regular, q monthly. No menorrhagia or dysmenorrhea. She is s/p tubal ligation. She had been followed at [facility] vulvar clinic for vaginismus. She was [...] Medical History: Diagnosis Date ??? 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 Social History Main Topics ??? Smoking status: [...] daily. added in this encounter Care Teams Financial Assistance Advisor Relationship Specialty Start Date End Date Bernardo Aragon MD [address] [place] [address] PCP - General 07/22/10 03/19/23 documented as of this encounter
--- OUTSIDE RECORDS SUMMARY | 2024-06-08 16:48 | XMS_ITS | Encounter Summary ---
Author Organization [facility] Address [address] [place] [address] Care Team Providers Care Certified Driver Examiner Name Role Phone Unavailable Primary Care Provider Unavailabl e Encounter Details Date Type Department Care Team (Late st Contact Info) Description 05/23/2020 Lab Requisition [facility] Testing [facility] [address] [place] [address] [place] [address] [address] [place] [address] Social History Tobacco Use Types Packs/Day Years [...] PCR [facility] ONLY Routine 05/23/2020 9:34 AM MANAGER INTERMEDIATE documented in this encounter Visit Diagnoses Not on filedocumented in this encounter
--- OUTSIDE RECORDS SUMMARY | 2024-06-08 16:48 | XMS_ITS | Encounter Summary ---
Author Organization [facility] Care Team Providers Care Molecular Biologist Name Role Phone Laila Danielle APRN, CNP Primary Care Provider +1 [phone] Raghav Blanco DPM Unavailable Unavailable Encounter Details [...] Coronavirus/COVID-19? No / Unsure 06/09/2022 10:55 AM REFRIGERATION ENGINE OPERATOR documented as of this encounter Plan of Treatment Not on file documented as of this encounter Visit Diagnoses Not on filedocumented in this encounter Care Teams Molecular Biologist Relationship Specialty Start Date End Date Laila Danielle APRN, CNP [address] [place] [address] PCP - General Family Medicine 05/30/22 Raghav Blanco DPM Podiatry 05/31/22 documented as of this encounter
--- OUTSIDE RECORDS SUMMARY | 2024-06-08 16:48 | XMS_ITS | Encounter Summary ---
Author Organization [facility] Care Team Providers Care Timber Robber Name Role Phone Laila Danielle APRN, CNP Primary Care Provider +1 [phone] Raghav Blanco DPM Unavailable Unavailable Encounter Details [...] Coronavirus/COVID-19? No / Unsure 06/14/2022 9:19 AM SQUASH CENTRE MANAGER documented as of this encounter Plan of Treatment Not on file documented as of this encounter Visit Diagnoses Not on filedocumented in this encounter Care Teams Timber Robber Relationship Specialty Start Date End Date Laila Danielle APRN, CNP [address] [place] [address] PCP - General Family Medicine 05/30/22 Raghav Blanco DPM Podiatry 05/31/22 documented as of this encounter
--- OUTSIDE RECORDS SUMMARY | 2024-06-08 16:48 | XMS_ITS | Encounter Summary ---
Author Organization [facility] Address [address] [facility] [place] [address] Phone Care Team Providers Care Icu Staff Nurse Name Role Phone Danielle, Lailazaira STEELE, AIR BRAKE OPERATOR Primary Care Provider [phone] [phone] Raghav Blanco DPLela Unavailable Unavailable Reason for Visit * Reason Comments Foot Injury Follow up * Consult, Test & Initiate Treatment (Routine) - Closed Specialty Diagnoses / Procedures Referred By Contac t Referred To Contact Diagnoses Strain of unspecified muscle and tendon at ankle and foot level, left foot, initial encounter [facility] Pod[facility] [address] [place] [address] Phone: tel: fax: Referral ID Status Reason Start Date Expiration Date Visits Re quested Visits Authorized [id number] Closed 1 1 Encounter Details Date Type Department Care Team (Late st Contact Info) Description 06/14/2022 9:30 AM ADOLESCENT SPECIALIST Office Visit [facility] Pod[facility] [address] [place] [address] Rhett De La Torre, DPM [address] [place], [place] [id number] Contusion of left foot, subsequent encounter (Primary [...] Coronavirus/COVID-19? No / Unsure 06/14/2022 9:19 AM ADOLESCENT SPECIALIST documented as of this encounter Last Filed Vital Signs Vital Sign Reading Time Taken Comments Blood Pressure 120/74 06/14/2022 9:21 AM ADOLESCENT SPECIALIST Pulse 88 06/14/2022 9:21 AM ADOLESCENT SPECIALIST Temperature 36.5 ??C (97.7 ??F) 06/14/2022 9:21 AM CS T Respiratory Rate 18 06/14/2022 9:21 AM ADOLESCENT SPECIALIST Oxygen Saturation 97% 06/14/2022 9:21 AM ADOLESCENT SPECIALIST Inhaled Oxygen Concentration - - Weight 98.4 kg (217 lb) 06/14/2022 9:21 AM ADOLESCENT SPECIALIST Height 172.7 cm (5' 8 ) 06/14/2022 9:21 AM ADOLESCENT SPECIALIST Body Mass Index 32.99 06/14/2022 9:21 AM ADOLESCENT SPECIALIST documented in this encounter Progress Notes * Rhett De La Torre, DPLela - 06/14/2022 9:30 AM CST [facility] [address] [facility], [address] [place] [address] 06/14/2022 Patient: Debo Quevedo : 1980 Subjective: [...] rx sent Rhett De La Torre DPM ESCENT SPECIALIST documented in this encounter Plan of Treatment Not on file documented as of this encounter Visit Diagnoses Diagnosis Contusion of left foot, subsequent encounter- Primary documented in this encounter Care Teams Icu Staff Nurse Relationship Specialty Start Date End Date Laila Danielle APRN, [place] [address] [place] [address] PCP - General Family Medicine 05/30/22 Raghav Blanco DPM Podiatry 05/31/22 documented as of this encounter
--- OUTSIDE RECORDS SUMMARY | 2024-06-08 16:48 | XMS_ITS | Encounter Summary ---
Author Organization [facility] Care Team Providers Care Assembler Semiconductor Name Role Phone Laila Danielle APRN, CNP Primary Care Provider [phone] [phone] Raghav Blanco DPM Unavailable Unavailable Encounter Details [...] Coronavirus/COVID-19? No / Unsure 07/12/2022 9:12 AM ELEMENTARY SCHOOL TEACHER'S AIDE documented as of this encounter Plan of Treatment Not on file documented as of this encounter Visit Diagnoses Not on filedocumented in this encounter Care Teams Assembler Semiconductor Relationship Specialty Start Date End Date Laila Danielle APRN, CNP [address] [place] [address] PCP - General Family Medicine 05/30/22 Raghav Blanco DPM Podiatry 05/31/22 documented as of this encounter
--- OUTSIDE RECORDS SUMMARY | 2024-06-08 16:48 | XMS_ITS | Encounter Summary ---
Author Organization [facility] Address [address] [place] [address] Phone Care Team Providers Care Budget Record Clerk Name Role Phone Danielle, Laila HAMMONDSN, ONLINE COMMUNITY MANAGER Primary Care Provider [phone] [phone] Raghav Blanco DPLela Unavailable Unavailable Reason for Visit * Reason Comments Sprain Follow up Encounter Details Date Type Department Care Team (Late st Contact Info) Description 07/12/2022 9:45 AM INTERNET SALES ASSOCIATE Office Visit [facility] - [facility]iatry [facility] [address] [place] [id number] Rhett De La Torre, DPM [address] [place] [address] Contusion of left foot, subsequent encounter (Primary [...] Coronavirus/COVID-19? No / Unsure 07/12/2022 9:12 AM INTERNET SALES ASSOCIATE documented as of this encounter Last Filed Vital Signs Vital Sign Reading Time Taken Comments Blood Pressure 118/72 07/12/2022 9:14 AM INTERNET SALES ASSOCIATE Pulse 97 07/12/2022 9:14 AM INTERNET SALES ASSOCIATE Temperature 36.3 ??C (97.3 ??F) 07/12/2022 9:14 AM CS T Respiratory Rate 18 07/12/2022 9:14 AM INTERNET SALES ASSOCIATE Oxygen Saturation 98% 07/12/2022 9:14 AM INTERNET SALES ASSOCIATE Inhaled Oxygen Concentration - - Weight 98.4 kg (217 lb) 07/12/2022 9:14 AM INTERNET SALES ASSOCIATE Height 172.7 cm (5' 8 ) 07/12/2022 9:14 AM INTERNET SALES ASSOCIATE Body Mass Index 32.99 07/12/2022 9:14 AM INTERNET SALES ASSOCIATE documented in this encounter Progress Notes * Rhett De La Torre, DPLela - 07/12/2022 9:45 AM CST [facility] [address] [facility], [address] [place] [address] 07/12/2022 Patient: Debo Quevedo : 1980 Subjective: [...] as needed Rhett De La Torre DPM RNET SALES ASSOCIATE documented in this encounter Plan of Treatment Not on file documented as of this encounter Visit Diagnoses Diagnosis Contusion of left foot, subsequent encounter- Primary Contusion of dorsum of foot documented in this encounter Care Teams Budget Record Clerk Relationship Specialty Start Date End Date Laila Danielle APRN, ONLINE COMMUNITY MANAGER [address] [place] [id number] PCP - General Family Medicine 05/30/22 Raghav Blanco DPM Podiatry 05/31/22 documented as of this encounter
--- OUTSIDE RECORDS SUMMARY | 2024-06-08 16:48 | XMS_ITS | Encounter Summary ---
Author Organization [facility] Address [address] [place] [address] Care Team Providers Care Coil Winding Machines Set Up Mechanic Name Role Phone Bernardo Aragon MD Primary Care Provider + Encounter Details Date Type Department Care Team (Late st Contact Info) Description 09/10/2014 4:06 PM CDT - 09/10/2014 11:59 PM CDT Hospital Encounter [facility] Del[facility], Yeimy Buchanan MD [address] [place] [address] Urinary frequency Social History Tobacco Use Types Packs/Day Years Used Date Smoking Tobacco: Never Alcohol Use Standard Drinks/Week Comments Yes 0 (1 standard drink = 0.6 oz pur e alcohol) Comments Unknown Sex and Gender Information Value Date Recorded Sex Assigned at Not on file Legal Sex Female 1:15 PM WEIGH BOX TENDER Gender Identity Not on file Sexual Orientation [...] HISTORICAL RESULTS - 09/12/2014 4:52 PM CDT [facility] ?Patient Name: ?ANKIT SOTO ?Med. Rec#: ?? [id number] ?Pt. Acct.#: ??[id number] ?Birthdate: ?? 1980 ?Age / Sex: ?? [...] frequency documented in this encounter Care Teams Coil Winding Machines Set Up Mechanic Relationship Specialty Start Date End Date Bernardo Aragon MD [address] [place] [address] PCP - General 07/22/10 03/19/23 documented as of this encounter
--- OUTSIDE RECORDS SUMMARY | 2024-06-08 16:48 | XMS_ITS | Encounter Summary ---
Author Organization [facility] Address [address] [place] [address] Phone Care Team Providers Care Vice President Fixed Income Name Role Phone Laila Danielle APRN, CNP Primary Care Provider [phone] [phone] Raghav Blanco DPLela Unavailable Unavailable Encounter Details Date Type Department Care Team (Late st Contact Info) Description 05/31/2022 Telephone [facility] - [facility]iatry [facility] [address] [place] [address] Raghav Blanco, DPM Social History [...] Coronavirus/COVID-19? No / Unsure 05/31/2022 1:04 PM CERAMIC PLATER documented as of this encounter Miscellaneous Notes * Telephone Encounter - Ruby Silva - 05/31/2022 1:43 PM CST Work note MIC PLATER documented in this encounter Plan of Treatment Not on file documented as of this encounter Visit Diagnoses Not on filedocumented in this encounter Care Teams Vice President Fixed Income Relationship Specialty Start Date End Date Laila Danielle APRN, CNP [address] [place] [address] PCP - General Family Medicine 05/30/22 Raghav Blanco DPM Podiatry 05/31/22 documented as of this encounter
--- OUTSIDE RECORDS SUMMARY | 2024-06-08 16:48 | XMS_ITS | Encounter Summary ---
Author Organization [facility] Address [address] [place] [address] Phone Care Team Providers Care Livestock Broker Name Role Phone Laila Danielle APRN, CNP Primary Care Provider +1 [phone] Raghav Blanco DPM Unavailable Unavailable Reason for Visit * Reason Comments Foot Injury * Consult, Test & Initiate Treatment (Routine) - Closed Specialty Diagnoses / Procedures Referred By Contdior t Referred To Contact Diagnoses Strain of unspecified muscle and tendon at ankle and foot level, left foot, initial encounter Laila Danielle APRN, CNP [address] [place] [address] Phone: tel: fax: Raghav Blanco DPM Referral ID Status Reason Start Date Expiration Date Visits Re quested Visits Authorized [id number] Closed 1 1 Encounter Details Date Type Department Care Team (Late st Contact Info) Description 05/31/2022 1:15 PM LABORER LANDSCAPE Office Visit [facility] - [facility]iatry [facility] [address] [place] [address] Raghav Blanco DPM Contusion of dorsum of [...] Coronavirus/COVID-19? No / Unsure 05/31/2022 1:04 PM LABORER LANDSCAPE documented as of this encounter Last Filed Vital Signs Vital Sign Reading Time Taken Comments Blood Pressure 122/72 05/31/2022 1:11 PM LABORER LANDSCAPE Pulse 115 05/31/2022 1:11 PM LABORER LANDSCAPE Temperature 36.4 ??C (97.5 ??F) 05/31/2022 1:11 PM CS T Respiratory Rate 18 05/31/2022 1:11 PM LABORER LANDSCAPE Oxygen Saturation 98% 05/31/2022 1:11 PM LABORER LANDSCAPE Inhaled Oxygen Concentration - - Weight 98.9 kg (218 lb) 05/31/2022 1:11 PM LABORER LANDSCAPE Height 172.7 cm (5' 8 ) 05/31/2022 1:11 PM LABORER LANDSCAPE Body Mass Index 33.15 05/31/2022 1:11 PM LABORER LANDSCAPE documented in this encounter Progress Notes * Raghav Blanco DPM - 05/31/2022 1:15 PM CST [facility] [address] [facility], [address] [place] [address] 05/31/2022 Patient: Debo Quevedo : 1980 Subjective: [...] xrays in 2 weeks. Raghav Blanco DPM RER LANDSCAPE documented in this encounter Miscellaneous Notes * Addendum Note - Anika Nagy RN - 05/31/2022 1:15 PM CSTAddended by: ANIKA NAGY on: 05/31/2022 01:48 PM Modules accepted: Orders RER LANDSCAPE documented in this encounter Plan of Treatment Not on file documented as of this encounter Results * XR ANKLE 3 OR MORE VIEWS LEFT (06/09/2022 11:33 AM LABORER LANDSCAPE) Anatomical Region Laterality Modality LOWER EXTREMITY, ankle Left Digital R adiography 06/11/2022 1:39 PM LABORER LANDSCAPE Impressions 06/11/2022 1:42 PM LABORER LANDSCAPE IMPRESSION: No acute fracture identified. Narrative 06/11/2022 1:42 PM LABORER LANDSCAPE EXAM DESCRIPTION: XR ANKLE 3 OR MORE [...] PM T: ??06/11/2022 1:39 PM Report ID: [id number] Reading Location: ??[id number] Procedure Note Pedro Castro MD - 06/11/2022 [...] Pedro Castro M.D. MF: [id number] Report ID: [id number] Reading Location: [id number] IMPRESSION: No acute fracture identified. Raghav Blanco DPM IMG DIAGNOSTIC ORDERABLES Fi nal Result * XR FOOT 3 OR MORE VIEWS LEFT (06/09/2022 11:33 AM LABORER LANDSCAPE) Anatomical Region Laterality Modality LOWER EXTREMITY, foot Left Digital Ra diography 06/11/2022 1:39 PM LABORER LANDSCAPE Impressions 06/11/2022 1:42 PM LABORER LANDSCAPE IMPRESSION: No acute fracture identified. Narrative 06/11/2022 1:42 PM LABORER LANDSCAPE EXAM DESCRIPTION: XR ANKLE 3 OR MORE [...] PM T: ??06/11/2022 1:39 PM Report ID: [id number] Reading Location: ??[id number] Procedure Note Pedro Castro MD - 06/11/2022 [...] Pedro Castro M.D. MF: [email or web address] Report ID: [id number] Reading Location: [id number] IMPRESSION: No acute fracture identified. Raghav Blacno DPM IMG DIAGNOSTIC ORDERABLES Fi nal Result documented in this encounter Visit Diagnoses Diagnosis Contusion of dorsum of foot- Primary Contusion of dorsum of foot documented in this encounter Care Teams Livestock Broker Relationship Specialty Start Date End Date Laila Danielle APRN, [place] [address] [place] [address] PCP - General Family Medicine 05/30/22 Raghav Blanco DPM Podiatry 05/31/22 documented as of this encounter
--- OUTSIDE RECORDS SUMMARY | 2024-06-08 16:48 | XMS_ITS | Encounter Summary ---
Author Organization [facility] Address [address] [place] [address] Phone Care Team Providers Care Sheet Metal Production Worker Name Role Phone Danielle, Laila CEDRIC, FIRE CONTROL TECHNICIAN G Primary Care Provider [phone] [phone] Raghav Blanco DPLela Unavailable Unavailable Encounter Details Date Type Department Care Team (Late st Contact Info) Description 06/14/2022 Telephone [facility] - [facility]iatry [facility] [address] [place] [address] Rhett De La Torre DPM [address] [place] [address] Social History Tobacco Use Types Packs/Day Years [...] Coronavirus/COVID-19? No / Unsure 06/14/2022 9:19 AM FAMILY SERVICE CENTER DIRECTOR documented as of this encounter Miscellaneous Notes * Telephone Encounter - Ruby Silva - 06/14/2022 9:30 AM CST Work note LY SERVICE CENTER DIRECTOR documented in this encounter Plan of Treatment Not on file documented as of this encounter Visit Diagnoses Not on filedocumented in this encounter Care Teams Sheet Metal Production Worker Relationship Specialty Start Date End Date Laila Danielle APRN, [place] [address] [place] [address] PCP - General Family Medicine 05/30/22 Rgahav Blanco DPM Podiatry 05/31/22 documented as of this encounter
--- OUTSIDE RECORDS SUMMARY | 2024-06-08 16:48 | XMS_ITS | Encounter Summary ---
Author Organization [facility] Address [address] [place] [address] Phone Care Team Providers Care Diversional Therapist Name Role Phone Danielle, Lailazaira STEELE CNP Primary Care Provider +1 [phone] Raghav Blanco DPM Unavailable Unavailable Encounter Details Date Type Department Care Team (Latest Contact Info) Description 07/18/2022 3:15 PM DIRECTOR PRESALES - 07/18/2022 11:59 PM DIRECTOR PRESALES Hospital Encounter [facility] [address] [place] [address] Provider, Not On File [place] [...] Coronavirus/COVID-19? No / Unsure 07/12/2022 9:12 AM DIRECTOR PRESALES documented as of this encounter Medications at [...] FOR IMAGE IMPORT Routine 07/18/2022 3:17 PM DIRECTOR PRESALES XR REFERENCE IMAGES FOR IMAGE IMPORT Routine 07/18/2022 3:15 PM DIRECTOR PRESALES documented in this encounter Results * XR REFERENCE IMAGES FOR IMAGE IMPORT (07/18/2022 3:17 PM DIRECTOR PRESALES) Only the most recent of2 resultswithin the time period is included. us Not On File Provider IMG DIAGNOSTIC ORDERABLES F inal Result documented in this encounter Visit Diagnoses Not on filedocumented in this encounter Care Teams Diversional Therapist Relationship Specialty Start Date End Date Shashi, CEDRIC [place], [place] [address] [place] [address] PCP - General Family Medicine 05/30/22 Raghav Blanco DPM Podiatry 05/31/22 documented as of this encounter
--- OUTSIDE RECORDS SUMMARY | 2024-06-08 16:48 | XMS_ITS | Encounter Summary ---
Author Organization [facility] Healthcare Address [address] [place] [address] Care Team Providers Care Cable Hooker Name Role Phone Laila Goss ASSEMBLY LINE ROBOT OPERATOR Primary Care Provider [phone] Reason for Referral * Consultation (Routine) - Closed Specialty Diagnoses / Procedures Referred By Cheyanne pacheco Referred To Contact Diabetes and Nutrition Services Diagnoses Obesity, unspecified classification, unspecified obesity type, unspecified whether serious comorbidity present Laila Goss NP [address] [place] [address] Phone: tel: fax: Laila Goss NP [address] [place] [address] Phone: tel: fax: Referral ID Status Reason Start Date Expiration Date V isits Requested Visits Authorized [id number] Closed Specialty Services Required 02/24/2023 03/25/2024 10 10 Question Answer [id number] Initial / Annual Follow-up MNT Please select the performing region: [facility] [144] To provider: LAILA GOSS [[id number]] # of visits: 10 Reason for Visit * Consultation (Routine) - Closed Specialty Diagnoses / Procedures Referred By Cheyanne pacheco Referred To Contact Diabetes and Nutrition Services Diagnoses Obesity, unspecified classification, unspecified obesity type, unspecified whether serious comorbidity present Laila Goss NP [address] [place] [address] Phone: tel: fax: Laila Goss NP [address] [place] [address] Phone: tel: fax: Referral ID Status Reason Start Date Expiration Date V isits Requested Visits Authorized [id number] Closed Specialty Services Required 02/24/2023 03/25/2024 10 10 Encounter Details Date Type Department Care Team (Latest Contact Info) Description 03/30/2023 7:10 AM CDT - 03/30/2023 11:59 PM CDT Hospital Encounter [facility] Nutrition and Diabetic Education [address] [facility] [address] [place] [address] [facility] [place] [address] Obesity, unspecified classification, unspecified obesity type, unspecified [...] on file Legal Sex Female 1:15 PM CASEWORKER INTAKE Gender Identity Not on file Sexual Orientation Not on file 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 [...] present documented in this encounter Care Teams Cable Hooker Relationship Specialty Start Date End Date Laila Goss NP [address] [place] [address] PCP - General Nurse Practitioner 03/20/23 documented as of this encounter
== END 2024-06-01 12:01 | disposition left against medical advice (07) ==
PROVIDERS: Emergency Provider Nurse Practitioner Family; PCP Nurse Practitioner Family
DX: Z53.21 Procedure and treatment not carried out due to patient leaving prior to being seen by health care provider (principal)
CPT/HCPCS: 99199; 99213; G0463